=== PATIENT | female | born 1940 | race Caucasian/White ===

== ENCOUNTER 2016-09-09 10:10 | Observation (INO) ==
[2016-09-09] MEDS ORDERED: ASPIRIN PO STA (10:42)
[2016-09-09 11:00] LABS: MANUAL DIFF NEEDED? NO
--- NOTE | 2016-09-09 11:00 | Diag Imaging Result Doc PS360 ---
EXAM: CHEST-PORTABLE HISTORY: CP TECHNIQUE: AP erect portable at 1055 COMMENT: Compared to the previous study of 06/09/2015 there has been no significant change in the appearance of the chest. IMPRESSION: Stable chest. Electronically signed by Carloz Castrejon 09/09/2016 10:58 AM
[2016-09-09 11:02] LABS: BASO% 0.1 % (0.0-0.8); EOS# 0.05 X1000 (0.0-0.7); EOS% 0.7 % (0.0-10.0); HEMATOCRIT 40.7 % (37.0-47.0); HEMOGLOBIN 13.4 g/dL (12.0-16.0); LYMPH# 0.75 X1000 (1.2-3.4); LYMPH% 10.5 % (20.5-51.1); MCH 32.6 PG (27-31); MCHC 32.9 g/dL (33-37); MONO# 0.42 X1000 (0.11-0.59); MONO% 5.9 % (1.7-9.3); MPV 9.3 FL (7.4-10.4); NEUT% 82.8 % (42.2-75.2); PLT 196 X1000 (130-400); RBC 4.11 XMIL (4.2-5.4)
[2016-09-09 11:13] LABS: INR 1.13; PTT 27.6 Seconds (22.0-36.0)
[2016-09-09 11:19] LABS: AGAP 12; ALBUMIN 4.6 g/dL (3.5-5.0); ALKALINE PHOSPHATASE 65 U/L (32-104); BUN 13 mg/dL (8-22); CHLORIDE 91 mmol/L (98-107); CK PROFILE 157 U/L (24-173); COSMO 273; GOT 20 U/L (10-30); GPT 11 U/L (10-36); MAGNESIUM 1.6 mg/dL (1.5-2.7); POTASSIUM 3.9 mmol/L (3.5-5.1); SODIUM 136 mmol/L (136-145); TCO2 33 mmol/L (25-35); TOTAL BILIRUBIN 0.67 mg/dL (0.20-1.00); TOTAL PROTEIN 7.3 g/dL (6.3-8.3)
--- NOTE | 2016-09-09 11:47 | EKG Report ---
Test Performed on : 09/09/2016 10:10:26 AM Test Reason : ED. Not ordered in [place]. Blood Pressure : / mmHG Vent. Rate : 072 BPM Atrial Rate : 061 BPM P-R Int : 000 ms QRS Dur : 078 ms QT Int : 410 ms P-R-T Axes : 000 056 005 degrees QTc Int : 448 ms Atrial fibrillation. Abnormal ECG When compared with ECG of 09-JUN-2015 21:25, Vent. rate has decreased BY 42 BPM Unconfirmed Result
--- NOTE | 2016-09-09 12:09 | PROVIDER DOCUMENTATION ---
This chart was entered by Boaz Mitchell Scribe, acting as scribe for Joann French MD. HPI-Chest Pain - General Chief Complaint: Chest Pain Stated Complaint: CP Time Seen by Provider: 09/09/16 10:35 Source: patient Allergies/Adverse Reactions: Patient Allergies Allergy/AdvReac Type Severity Reaction Status Date / Time ampicillin Allergy Mild Unknown Verified 09/09/16 10:42 Penicillins Allergy Mild RASH Verified 09/09/16 10:42 acetaminophen [From Percocet] Allergy Unknown Verified 09/09/16 10:42 oxycodone HCl * Allergy Unknown Verified 09/09/16 10:42 [From Percocet] Home Medications: Home Medication List Medication Instructions Recorded Confirmed Last Taken Type Alprazolam [Xanax] 1 mg PO QHS PRN 08/27/14 09/09/16 04/22/15 History Apixaban [Eliquis] 2.5 mg PO BID 08/27/14 09/09/16 09/09/16 08:00 History Biotin 500 mcg PO DAILY 08/27/14 09/09/16 09/09/16 08:00 History Bisacodyl [Dulcolax] 5 mg PO DAILY 08/27/14 09/09/16 09/09/16 08:00 History Calcium Citrate/Vitamin D3 [[place] 1 tab PO DAILY 08/27/14 09/09/16 09/09/16 08: 00 History Calcium + D Tablet] Carvedilol [Coreg] 12.5 mg PO BID 08/27/14 09/09/16 09/09/16 08:00 History Escitalopram Oxalate [Lexapro] 10 mg PO BID 08/27/14 09/09/16 09/09/16 08:00 History Fluticasone 50 Mcg Nasal [place] 1 spray INH DAILY 08/27/14 09/09/16 04/22/15 History [Flonase] Folic Acid 0.8 mg PO DAILY 08/27/14 09/09/16 09/09/16 08:00 History Folic Acid/Multivit-Min/[place] 1 tab PO DAILY 08/27/14 09/09/16 09/09/16 08:00 History [Centrum Silver Chewable Tablet] Furosemide [Lasix] 20 mg PO DIRECTED 08/27/14 09/09/16 09/09/16 08:00 History Gabapentin 400 mg PO TID 08/27/14 09/09/16 09/09/16 08:00 History Hydrocodone/Acetaminophen [[place] 1 tab PO Q4HR PRN 08/27/14 09/09/16 04/22/15 History 10-325 Tablet] Lisinopril 10 mg PO DAILY 08/27/14 09/09/16 09/09/16 08:00 History PRAVAstatin [Pravachol] 40 mg PO QHS 08/27/14 09/09/16 09/09/16 08:00 History Pantoprazole [Protonix] 40 mg PO DAILY@0700 08/27/14 09/09/16 09/09/16 08:00 History Fluticasone Propionate 44 INH 1 puff INH DAILY 08/28/14 09/09/16 04/22/15 History [Flovent 44 Microgm Hfa] Clonidine HCl 0.1 mg PO TID PRN #30 tablet 06/09/15 09/09/16 09/09/16 08:00 Rx Cetirizine HCl [Zyrtec] 10 mg PO DAILY 09/09/16 09/09/16 09/09/16 08:00 History Clopidogrel Bisulfate [Plavix] 75 mg PO DAILY 09/09/16 09/09/16 09/09/16 08:00 History Diltiazem HCl [Cartia Xt] 1 tab PO DAILY 09/09/16 09/09/16 09/09/16 08:00 History Ferrous Sulfate 325 mg PO DAILY 09/09/16 09/09/16 09/09/16 08:00 History Levalbuterol Inhaler [Xopenex Hfa] 1 puff PO PRN PRN 09/09/16 09/09/16 Unknown History Methocarbamol [Robaxin-750] 750 mg PO PRN PRN 09/09/16 09/09/16 Unknown History Nitroglycerin 0.4 mg SL PRN PRN 09/09/16 09/09/16 09/09/16 08:00 History Potassium Chloride [Klor-Con 10] 2 tab PO BID 09/09/16 09/09/16 09/09/16 08:00 History - History of Present Illness-CP Nature of Presenting Problem: 75 yo F presents to the ER with complaint of CP since 9 AM. The pain radiated to her L arm. Pt took nitro this morning and experienced relief. PT felt nauseas , SOB, but did not vomit. Location: reports: substernal Chest Pain Radiation: reports: arms (left) Quality of Pain: reports: pressure Severity in ED: mild Onset/Duration: this morning Timing: gone now Associated Symptoms: reports: nausea, shortness of breath Nitro Today/Relief: provided at home Aspirin Treatment Today: no aspirin today Review of Systems - Adult - REVIEW OF SYSTEMS - ADULT Constitutional: denies: chills, fever Cardiovascular: reports: chest pain. denies: palpitations Gastrointestinal: reports: nausea. denies: abdominal pain, vomiting All Other Systems: Reviewed and Negative Past History - Adult - PAST MEDICAL HISTORY-ADULT Review of Records: reports: Old Records Reviewed, Nursing Assessment Review, Medications Reviewed, Social history reviewed & non-contributory. Major Childhood Illnesses: reports: denies history Cardiovascular: reports: A-Fib, CAD, HTN, hyperlipidemia, GA Respiratory: reports: COPD Gastrointestinal: reports: diverticulosis, GI bleed Obstetrical/Gynecological: reports: denies history Genitourinary: reports: denies history Musculoskeletal: reports: chronic pain, intervertebral disc disease Neurological: reports: denies history Psychiatric: reports: anxiety Endocrine/Immune: reports: denies history Other Conditions: reports: denies history - PRIOR SURGERIES/PROCEDURES Surgical/Procedure History: reports: hysterectomy, other (colectomy) - IMMUNIZATION STATUS Childhood Immunizations: See Nurse Assessment Flu Vaccine: See Nurse Assessment - FAMILY HISTORY Family History: reviewed, not pertinent Physical Exam-General - PHYSICAL EXAM-ADULT Initial Vital Signs Reviewed: Yes - CONSTITUTIONAL General Appearance: appears well, alert, no apparent distress - RESPIRATORY Respiratory: chest non-tender, lungs clear - CARDIOVASCULAR Cardiovascular: normal peripheral pulses, regular rate, rhythm - GASTROINTESTINAL (ABDOMEN) Abdominal Exam: normal bowel sounds, non tender, soft - MUSCULOSKELETAL Extremity: normal range of motion, non-tender, normal gait - SKIN Integumentary: normal color, normal turgor, warm/dry Progress - PLAN OF CARE/RESULTS Progress/Plan/Lab Results: Vital Signs - 8 hr 09/09/16 10:28 09/09/16 11:58 Temperature 98.3 F Pulse Rate 77 66 Respiratory Rate 21 24 Blood Pressure 124/67 144/77 O2 Sat by Pulse Oximetry 95 96 Laboratory Results - last 24 hr 09/09/16 09/09/16 09/09/16 10:25 10:25 10:25 WBC 7.14 RBC 4.11 L Hgb 13.4 Hct 40.7 MCV 99.0 MCH 32.6 H MCHC 32.9 L RDW Std Deviation 12.0 Plt Count 196 MPV 9.3 Immature Gran % (Auto) 0.0 Neut % (Auto) 82.8 H Lymph % (Auto) 10.5 L [place] % (Auto) 5.9 Eos % (Auto) 0.7 Baso % (Auto) 0.1 Immature Gran # (Auto) 0.00 Neut # (Auto) 5.91 Lymph # (Auto) 0.75 L [place] # (Auto) 0.42 Eos # (Auto) 0.05 Baso # (Auto) 0.01 PT INR PTT (Actin FS) Sodium 136 Potassium 3.9 Chloride 91 L Carbon Dioxide 33 Anion Gap 12 BUN 13 Creatinine 0.7 Estimated GFR/1.73 m2 > 60 BUN/Creatinine Ratio 19 Glucose 116 H Calculated Osmolality 273 Calcium 10.0 Magnesium 1.6 Total Bilirubin 0.67 AST 20 ALT 11 Alkaline Phosphatase 65 Creatine Kinase 157 Troponin T Dae-M-Ktykxryevvn Pept 2065 H Total Protein 7.3 Albumin 4.6 Globulin 2.7 Albumin/Globulin Ratio 1.7 09/09/16 09/09/16 10:25 10:25 WBC RBC Hgb Hct MCV MCH MCHC RDW Std Deviation Plt Count MPV Immature Gran % (Auto) Neut % (Auto) Lymph % (Auto) [place] % (Auto) Eos % (Auto) Baso % (Auto) Immature Gran # (Auto) Neut # (Auto) Lymph # (Auto) [place] # (Auto) Eos # (Auto) Baso # (Auto) PT 12.0 H INR 1.13 PTT (Actin FS) 27.6 Sodium Potassium Chloride Carbon Dioxide Anion Gap BUN Creatinine Estimated GFR/1.73 m2 BUN/Creatinine Ratio Glucose Calculated Osmolality Calcium Magnesium Total Bilirubin AST ALT Alkaline Phosphatase Creatine Kinase Troponin T < 0.010 Ang-E-Jdlykxgqmun Pept Total Protein Albumin Globulin Albumin/Globulin Ratio Orders Category Date Time Status Cardiac Monitoring DIRECTED Care 09/09/16 10:42 Active Saline Loc NOW Care 09/09/16 10:42 Active CHEST-PORTABLE [RAD] Stat Exams 09/09/16 10:42 Completed CBC WITH ELECTRONIC DIFF [HEME] Stat Lab 09/09/16 10:25 Completed CK PROFILE [SP CHEM] Stat Lab 09/09/16 10:25 Completed COMPREHENSIVE METABOLIC PANEL [CHEM] Stat Lab 09/09/16 10:25 Completed MAGNESIUM [CHEM] Stat Lab 09/09/16 10:25 Completed PRO B-NATRIURETIC PEPTIDE Stat Lab 09/09/16 10:25 Completed PROTIME WITH INR [COAG] Stat Lab 09/09/16 10:25 Completed PTT [COAG] Stat Lab 09/09/16 10:25 Completed TROPONIN T Stat Lab 09/09/16 10:25 Completed Aspirin Med 09/09/16 10:42 Discontinued 325 mg PO STAT STA EKG [EKG] Stat Ther 09/09/16 10:10 Draft Result Diagrams: 09/09/16 10:25 09/09/16 10:25 - EKG 1 Time of EKG reading by physician:: 10:30 EKG Read and Signed by:: Joann French EKG Interpretation (*Must complete 3 of following elements*): Abnormal Rate: 72 Rhythm: atrial fibrillation [place]: normal QRS: normal OR Interval: normal ST Wave: normal Comments: abnormal EKG - XRAY 1 XRAY Study: Chest Impression: See EMR Report - CONSULTS/PCP/HOSPITALIST Notification #1 *Consult/PCP/Hospitalist*: DR Madrigal Time Discussed: 12:07 Consult Disposition: Admit Departure - Departure Date of Disposition Decision: 09/09/16 Time of Disposition Decision: 12:07 DIAGNOSIS: Unstable angina Chest pain Qualifiers: Chest pain type: unspecified Qualified Code(s): R07.9 - Chest pain, unspecified CHF (congestive heart failure) Qualifiers: Congestive heart failure type: unspecified congestive heart failure type Congestive heart failure chronicity: unspecified congestive heart failure chronicity Qualified Code(s): I50.9 - Heart failure, unspecified Disposition: ADMITTED INPATIENT 09 Certified Medical Emergency: Urgent Condition: Fair - Critical Care Note This patient required my direct & personal management of CC.: No Comments: pt falls into moderate risk category pt do not recall recent stress test first set of labs normal needs to be admitted for further evalaution This chart was documented by the indicated scribe, (Boaz Mitchell Scribe) and accurately reflects the services I performed and decisions made by me, Joann French MD, as attested by the provider's signature.
[2016-09-09] MEDS ORDERED: PNEUMOVAX 23 IM ONE (14:45)
[2016-09-09] MEDS ORDERED: CATAPRES PO PRN (15:49)
[2016-09-09] MEDS ORDERED: ZOFRAN IV PRN (15:51)
[2016-09-09] MEDS ORDERED: DUONEB (A & A) INH PRN (15:51)
[2016-09-09] MEDS ORDERED: TYLENOL PO PRN (15:51)
[2016-09-09] MEDS ORDERED: NEURONTIN PO SCH (17:00)
[2016-09-09] MEDS: NEURONTIN PO SCH (17:43)
[2016-09-09] MEDS: NORCO-10 PO PRN (17:44)
[2016-09-09 18:32] LABS: URINE MICRO REVIEW NEEDED? NO; URINE SOURCE CLEAN CATCH
[2016-09-09 18:35] LABS: BILIRUBIN URINE NEGATIVE (NEGATIVE); BLOOD URINE NEGATIVE (NEGATIVE); COLOR YELLOW; GLUCOSE URINE NEGATIVE (NEGATIVE); LEUKOCYTES URINE SMALL (NEGATIVE); NITRITE URINE NEGATIVE (NEGATIVE); PH URINE 5.5; PROTEIN URINE TRACE mg/dL (NEGATIVE); SP GRAVITY URINE 1.016; TURBIDITY URINE CLEAR (CLEAR); UR EPITHELIAL CELLS <10 /HPF (<10); URINE BACTERIA 4+ /HPF; URINE CULTURE NEEDED? YES; URINE RBC <10 /HPF (<10); UROBILINOGEN URINE NORMAL (NORMAL)
[2016-09-09] MEDS: PRINIVIL PO SCH ×2 (18:49→21:49)
[2016-09-09] MEDS: COREG PO SCH ×2 (18:49→21:49)
[2016-09-09] MEDS: ELIQUIS PO SCH ×2 (18:49→21:49)
[2016-09-09] MEDS: VALIUM PO PRN ×2 (18:53→21:48)
--- NOTE | 2016-09-09 20:44 | HISTORY AND PHYSICAL ---
CHIEF COMPLAINT: Unknown. HISTORY OF PRESENT ILLNESS: This 75-year-old, white female had apparently been struggling with fluctuating blood pressure and not eating or drinking since last week. Despite her daughter's insistence, she refused to come. They called the office this morning and we offered them an appointment. They then stated that the patient was too sick and called 911 for ambulance transport. I cannot concur that this was entirely necessary. The patient reported to the emergency room doctor that she had chest pain this morning. To me she stated that she just had some very light pressure which dissipated quickly. When I asked what was wrong with her for the last week or so, she came up with a plethora of problems and when any of those were questioned, she would change the subject. She has not been sleeping well, not been eating or drinking and she "just could not go". PAST MEDICAL HISTORY: 1. Chronic low back pain, on narcotics. 2. Anxiety and depression. 3. Chronic anticoagulation with Eliquis. 4. Pulmonary hypertension with history of volume overloaded state. 5. Hypertension. 6. Chronic constipation. 7. Folic acid deficiency. 8. B12 deficiency. 9. Gastroesophageal reflux disease. 10. Hyperlipidemia. 11. Atrial fibrillation, chronic. 12. Remote history of acute myocardial infarction with chronic ischemic disease. 13. History of diverticular rupture with colostomy and subsequent reversal. 14. Chronic moderate COPD. 15. Patient is on chronic oxygen at home. SOCIAL HISTORY: The patient is a former smoker. She is for the last several years. She is a nonuser of alcohol. She uses opiates on a daily basis. FAMILY HISTORY: Noncontributory. REVIEW OF SYSTEMS: The patient denies any fever or chills. She states that she does not want to eat because it "does not taste good". She has some mild nausea. She had a little bit of chest pressure today, but no shortness of breath. According to the daughter, her blood pressures been wildly fluctuating and her heart rate has been elevated on a consistent basis. Patient states that she maxwell when she urinates and has frequency as well. She denied any abdominal pain, vomiting or diarrhea. The patient states she has not been sleeping well. Patient has lost 10 pounds in the last 2 weeks or so according to the daughter. PHYSICAL EXAMINATION: GENERAL: Thin, white female in no acute distress. Her speech is somewhat rambling, tangential. Although she puts her thoughts and words together appropriately, I do not think she is as completely oriented as she passes herself off to be. ENT: Sclerae anicteric. Oral mucosa is adequately hydrated. NECK: No JVD or bruits noted. LUNGS: Clear to auscultation bilaterally. CARDIOVASCULAR: Irregular at approximately 80 beats per minute with no particular murmurs. ABDOMEN: Shows bowel sounds are present. She has slight epigastric tenderness , but no palpable mass. EXTREMITIES: Show no peripheral edema. SKIN: She does have skin tenting on her forearms. LABORATORY: White blood cell count 7, hematocrit 40.7. Sodium is 136, potassium 3.9, creatinine 0.7, blood sugars 116. Liver function tests are normal. CK is 157. Initial troponin is negative. ProBNP is slightly elevated at 2065. UA showed significant WBC, sent for culture. ASSESSMENT/PLAN: 1. The patient will be admitted to the hospital and kept on telemetry. We will get serial cardiac enzymes since she did have some chest pressure and a history of coronary disease. 2. The patient's relative anorexia is more or less self-induced. I think she does have some psychological problems revolving around depression and anxiety which have been driving her fluctuations in blood pressure as well as her weight loss and poor appetite. We will try and resolve this with the addition of Remeron at night to help her to sleep and to calm her. We will have p.r.n. medications available should she need it for nervousness. 3. The remainder of the patient's home medications remain as they were previously for control of her atrial fibrillation and other issues. 4. UTI will be treated with Levaquin pending culture results. She is PCN allergic. cc: Berto Madrigal MD [facility]
[2016-09-09] MEDS: LEVAQUIN 500 MG/D5W 500 MG/100 ML IVPB IV SCH (21:00)
[2016-09-09] MEDS ORDERED: XANAX PO PRN (21:00)
[2016-09-09] MEDS: REMERON PO SCH (21:48)
[2016-09-09] MEDS: LEXAPRO PO SCH (21:48)
[2016-09-10] MEDS: PROTONIX PO SCH (06:49)
[2016-09-10] MEDS ORDERED: PRINIVIL PO SCH (09:00)
[2016-09-10] MEDS: PLAVIX PO SCH (09:06)
[2016-09-10] MEDS: CARDIZEM CD PO SCH (09:06)
[2016-09-10] MEDS: COREG PO SCH ×2 (09:06→21:20)
[2016-09-10] MEDS: FERROUS SULFATE PO SCH (09:06)
[2016-09-10] MEDS: ELIQUIS PO SCH ×2 (09:06→21:20)
[2016-09-10] MEDS: PRINIVIL PO SCH ×2 (09:06→21:20)
[2016-09-10] MEDS: LEXAPRO PO SCH ×2 (09:06→21:19)
[2016-09-10] MEDS: NEURONTIN PO SCH ×3 (09:06→17:17)
[2016-09-10] MEDS: NORCO-10 PO PRN ×3 (10:25→23:26)
--- NOTE | 2016-09-10 12:33 | PROGRESS NOTE ---
DATE: 09/10/2016 SUBJECTIVE: The patient was awake when I came in the room but had not yet eaten breakfast. She states today that she ate poorly last night, although she slept rather well. The patient's daughter was present but asleep in the chair. Patient admitted to me that the day of admission she had woken up having dreamt about her and was quite upset. She has been contemplating his demise of late and as I thought yesterday, there was a psychological underpinning to be nature for vague complaints leading to hospitalization. I explained to her that she did have urinary tract infection, that if she did not product picker her appetite she would suffer some type of a poor outcome. She expressed understanding. OBJECTIVE: Vital signs: Temperature 98.1, pulse 87, blood pressure 129/75. General: Patient is awake, alert, oriented, and conversive. She seems a little more like herself today. She is a little calmer in her responses and measured in the way that she talks. Lungs: Clear. Cardiovascular: Irregularly irregular. ASSESSMENT AND PLAN: 1. The patient will continue on Levaquin until we get urine culture results. 2. The patient's cardiac enzymes are negative x3. We will not pursue this avenue of investigation any further. 3. We will continue the patient's Remeron at night. I have also add the lowest possible dose of Klonopin to get her good sleep and to hopefully have some residual antianxiety affect for the following day. 4. We will continue to monitor the patient's blood pressure. 5. The patient is strongly encouraged to eat and drink. We will monitor her total input and output. cc: Berto Madrigal MD
[2016-09-10] MEDS: VALIUM PO PRN (16:53)
[2016-09-10] MEDS ORDERED: KLONOPIN PO SCH (21:00)
[2016-09-10] MEDS ORDERED: PRAVACHOL PO SCH (21:00)
[2016-09-10] MEDS: REMERON PO SCH (21:19)
[2016-09-10] MEDS: LEVAQUIN 500 MG/D5W 500 MG/100 ML IVPB IV SCH (21:20)
[2016-09-11] MEDS: PROTONIX PO SCH (06:30)
[2016-09-11] MEDS: NORCO-10 PO PRN (06:33)
[2016-09-11 07:23] VITALS: BP 128/75
[2016-09-11] MEDS: PRINIVIL PO SCH (08:45)
[2016-09-11] MEDS: COREG PO SCH (08:45)
[2016-09-11] MEDS: FERROUS SULFATE PO SCH (08:45)
[2016-09-11] MEDS: LEXAPRO PO SCH (08:45)
[2016-09-11] MEDS: PLAVIX PO SCH (08:45)
[2016-09-11] MEDS: NEURONTIN PO SCH (08:46)
[2016-09-11] MEDS: CARDIZEM CD PO SCH (08:46)
[2016-09-11] MEDS: ELIQUIS PO SCH (08:46)
--- NOTE | 2016-09-11 09:54 | DISCHARGE SUMMARY ---
ADMISSION DATE: 09/09/2016 DISCHARGE DATE: DISCHARGE DIAGNOSES: 1. Shortness of breath. 2. Anorexia. 3. Urinary tract infection. 4. Chronic atrial fibrillation. 5. Chest pain. HOSPITAL COURSE: This 75-year-old white female was admitted to the hospital with weakness, to some degree confusion, and urinary tract infection. In the emergency room she complained of some chest pressure, which was also of concern given her cardiac history. The patient was admitted to the hospital and was noted on my examination of her that her mental status was not at its baseline. She seemed very frazzled and disorganized and was not making a whole much sense. As we discuss things further, it was clear that there was at least some psychological element to her recent down turn and loss of appetite, loss of sleep, and other situational pressures which are affecting her. The patient was ruled out with serial cardiac isoenzymes. She was discovered to have a urinary tract infection and started on Levaquin. Cultures were pending at the time of discharge. I have added a tiny dose of Klonopin with some Remeron to her nighttime medicine and she slept very soundly and was much more organized the following day. On the day of discharge, she was back to her baseline level of interaction and was eating and drinking much, much better. I discussed the findings and plan with the patient and her daughter and they were in agreement with discharge. New medications will be written for them at time the time of discharge. Old medications will be refilled through my office and she will have followup as scheduled previously. cc: Berto Madrigal MD
== END 2016-09-11 10:20 | disposition home or self-care (01) ==
LOC: ED 10:10 → 4N 10:10
PROVIDERS: ADMIT Internal Medicine; ATTEND Internal Medicine

== ENCOUNTER 2018-08-17 17:22 | Inpatient (IN) ==
[2018-08-17] MEDS ORDERED: SOLU-MEDROL IV ONE (18:23)
--- NOTE | 2018-08-17 18:43 | Diag Imaging Result Doc PS360 ---
EXAM: CHEST-2 VIEWS INDICATION: SOB TECHNIQUE: 2 views COMPARISON: 09/09/2016 FINDINGS: There is suggestion of mild subsegmental atelectasis at the lung bases. The lungs are grossly clear, otherwise. There is no discrete pleural fluid collection or pneumothorax. The cardiac silhouette is mildly prominent but stable. IMPRESSION: Mildly prominent heart that is stable and subsegmental atelectasis at the lung bases. Electronically signed by Misbah Brannon 08/17/2018 6:40 PM
--- NOTE | 2018-08-17 18:44 | PROVIDER DOCUMENTATION ---
This chart was entered by Anuja Brannon Scribe, acting as scribe for Idris Ramesh MD. HPI-Respiratory General - General Chief Complaint: Shortness of Breath Stated Complaint: SOB Time Seen by Provider: 08/17/18 17:53 Source: patient Allergies/Adverse Reactions: Patient Allergies Allergy/AdvReac Type Severity Reaction Status Date / Time ampicillin Allergy Mild Unknown Verified 09/09/16 10:42 Penicillins Allergy Mild RASH Verified 09/09/16 10:42 oxycodone HCl * Allergy Unknown Verified 09/09/16 10:42 [From Percocet] Home Medications: Home Medication List Medication Instructions Recorded Confirmed Last Taken Type Apixaban [Eliquis] 2.5 mg PO BID 08/27/14 09/09/16 09/09/16 07:00 History Biotin 500 mcg PO 1200 08/27/14 09/09/16 3 Weeks Ago History ~08/19/16 Bisacodyl [Dulcolax] 5 mg PO QHS 08/27/14 09/09/16 09/08/16 17:00 History Calcium Citrate/Vitamin D3 [Iva 1 tab PO DAILY 08/27/14 09/09/16 09/09/16 07: 00 History Calcium + D Tablet] Escitalopram Oxalate [Lexapro] 10 mg PO DAILY 08/27/14 09/09/16 09/09/16 07:00 History Fluticasone 50 Mcg Nasal [place] 1 spray YUNG BID 08/27/14 09/09/16 3 Days Ago History [Flonase] ~09/06/16 Folic Acid 0.8 mg PO QHS 08/27/14 09/09/16 09/08/16 17:00 History Furosemide [Lasix] 20 mg PO DIRECTED 08/27/14 09/09/16 09/09/16 07:00 History Hydrocodone/Acetaminophen [[place] 1 tab PO Q4HR PRN 08/27/14 09/09/16 09/09/16 14:00 History 10-325 Tablet] Lisinopril 10 mg PO BID 08/27/14 09/09/16 09/09/16 07:00 History PRAVAstatin [Pravachol] 40 mg PO QHS 08/27/14 09/09/16 09/08/16 17:00 History Pantoprazole [Protonix] 40 mg PO DAILY@0700 08/27/14 09/09/16 09/09/16 07:00 History Fluticasone Propionate 44 INH 1 puff INH Q4-6H PRN PRN 08/28/14 09/09/16 2 Days Ago History [Flovent 44 Microgm Hfa] ~09/07/16 Clonidine HCl 0.1 mg PO TID PRN #30 tablet 06/09/15 09/09/16 09/09/16 08:30 Rx Clopidogrel Bisulfate [Plavix] 75 mg PO DAILY 09/09/16 09/09/16 09/09/16 07:00 History Cyanocobalamin (Vitamin B-12) 5,000 mcg PO DAILY 09/09/16 09/09/16 09/09/16 07:00 History [Vitamin B-12] Diltiazem HCl [Cartia Xt] 1 tab PO QHS 09/09/16 09/09/16 09/08/16 17:00 History Docusate Sodium [Stool Softener] 100 mg PO BID 09/09/16 09/09/16 09/09/16 07:00 History Ferrous Sulfate 325 mg PO QHS 09/09/16 09/09/16 09/08/16 17:00 History Levalbuterol Inhaler [Xopenex Hfa] 2 puff PO Q4-6H PRN PRN 09/09/16 09/09/16 Unknown History Methocarbamol [Robaxin-750] 750 mg PO Q8HR PRN 09/09/16 09/09/16 Unknown History Multivit-Min/Iron/Folic/Lutein 1 each PO QHS 09/09/16 09/09/16 09/08/16 17:00 History [Centrum Silver Women Tablet] Nitroglycerin 0.4 mg SL PRN PRN 09/09/16 09/09/16 09/09/16 09:00 History Potassium Chloride [Klor-Con 10] 20 mg PO 1200 09/09/16 09/09/16 3 Weeks Ago History ~08/19/16 Vitamin E 1,000 units PO DAILY 09/09/16 09/09/16 09/09/16 07:00 History Carvedilol [Coreg] 12.5 mg PO BID tablet 09/11/16 Unknown Rx Clonazepam [Klonopin] 0.25 mg PO QHS #30 tablet 09/11/16 Unknown Rx Gabapentin [Neurontin] 100 mg PO TID #90 capsule 09/11/16 Unknown Rx Mirtazapine [Remeron] 7.5 mg PO QHS #30 tablet 09/11/16 Unknown Rx - History of Present Illness-Resp Nature of Presenting Problem: 77 yof presents to er w/cc sob, dyspnea on exertion, chest tightness and high bp started 1 wk ago but becoming worse sat. pt on 3 L o2 at home. o2 in place at er. pt is a former smoker, quit few yrs ago. pt has hx of cardiac stents and copd. pt denies fever, cough and n/v. Review of Systems - Adult - REVIEW OF SYSTEMS - ADULT Constitutional: reports: no symptoms reported. denies: chills, fever, fatique Eyes: reports: no symptoms reported Ears, Nose, Mouth & Throat: reports: no symptoms reported. denies: ear pain, sinus problem, throat pain Cardiovascular: reports: see HPI, chest pain (tightness). denies: palpitations, poor circulation, syncope Respiratory: reports: see HPI, dyspnea on exertion, shortness of breath. denies: cough, excessive sputum production, hemoptysis Gastrointestinal: reports: no symptoms reported. denies: abdominal pain, nausea, vomiting Genitourinary: reports: no symptoms reported Musculoskeletal: reports: no symptoms reported Integumentary: reports: no symptoms reported Neurological: reports: no symptoms reported Psychiatric: reports: no symptoms reported Endocrine: reports: no symptoms reported Hematologic/Lymphatic: reports: no symptoms reported Allergic/Immunologic: reports: no symptoms reported All Other Systems: Reviewed and Negative Past History - Adult - PAST MEDICAL HISTORY-ADULT Review of Records: reports: Old Records Reviewed, Nursing Assessment Review, Medications Reviewed, Social history reviewed & non-contributory. Major Childhood Illnesses: reports: denies history Cardiovascular: reports: A-Fib, CAD, HTN, hyperlipidemia, [place] Respiratory: reports: COPD Gastrointestinal: reports: diverticulosis, GI bleed Obstetrical/Gynecological: reports: denies history Genitourinary: reports: denies history Musculoskeletal: reports: chronic pain, intervertebral disc disease Neurological: reports: denies history Psychiatric: reports: anxiety Endocrine/Immune: reports: denies history Other Conditions: reports: denies history - PRIOR SURGERIES/PROCEDURES Surgical/Procedure History: reports: hysterectomy, other (colectomy) - IMMUNIZATION STATUS Childhood Immunizations: See Nurse Assessment Flu Vaccine: See Nurse Assessment - FAMILY HISTORY Family History: reviewed, not pertinent - SOCIAL HISTORY Smoking: cigarettes, other (former) Substance Use: none/never Physical Exam-General - PHYSICAL EXAM-ADULT Initial Vital Signs Reviewed: Yes - CONSTITUTIONAL General Appearance: appears well, alert, no apparent distress - EYES Eyes: PERRL/EOMI, pink conjunctivae - HEAD, EARS, NOSE, MOUTH & THROAT HENMT: normocephalic/atraumatic, moist mucous membranes, normal ENT inspection - NECK Neck: non-tender, full range of motion, supple, normal inspection - RESPIRATORY Respiratory: chest non-tender, no pleuratic chest pain, no respiratory distress, no accessory muscle use, decreased breath sounds (mild diminshed), rales (bilat bases), wheezing (bilat bases). negative: lungs clear, normal breath sounds, respiratory distress, dull on percussion, prolonged expiration - CARDIOVASCULAR Cardiovascular: normal peripheral pulses, no edema, no gallop, no JVD, no murmur , tachycardia. negative: regular rate, rhythm, JVD, bradycardia - GASTROINTESTINAL (ABDOMEN) Abdominal Exam: normal bowel sounds, non tender, soft - LYMPHATIC Lymphatic: no adenopathy - MUSCULOSKELETAL Back Exam: normal inspection, no CVA tenderness, no vertebral tenderness Extremity: normal range of motion, non-tender, normal inspection Peripheral Pulses: radial (R): 2+, radial (L): 2+ - SKIN Integumentary: normal color, normal turgor, warm/dry - NEUROLOGIC Neurologic: grossly normal, no motor/sensory deficits - PSYCHIATRIC Psych/Mental Status: normal mood/affect, normal thought content, normal thought process, oriented x 3 Progress - PLAN OF CARE/RESULTS Progress/Plan/Lab Results: Vital Signs - 8 hr 08/17/18 17:45 Temperature 98.0 F Pulse Rate 101 H Respiratory Rate 18 Blood Pressure 155/89 O2 Sat by Pulse Oximetry 95 Orders Category Date Time Status IV Insertion ORDERED Care 08/17/18 18:23 Active CHEST-2 VIEWS [RAD] Stat Exams 08/17/18 18:15 Completed BLOOD CULTURE [BLDCUL] Stat Lab 08/17/18 18:22 Ordered CBC WITH ELECTRONIC DIFF [HEME] Stat Lab 08/17/18 18:21 Uncollected CMP [COMPREHENSIVE METABOLIC PANEL] [CHEM] Stat Lab 08/17/18 18:21 Uncollected LACTATE, PLASMA [CHEM] Stat Lab 08/17/18 18:22 Uncollected Methylprednisolone Sod Succ [Solu-Medrol] Med 08/17/18 18:23 Discontinued 125 mg IV NOW ONE Departure - Departure Referrals and Follow-Ups: Berto Madrigal MD [Primary Care Provider] - Attestation - Physician/ COLLETTE Attestation Patient care was provided by Advanced Practice Provider:: No The physician spent face to face time with patient:: Yes Advanced Practice Provider documentation review:: Supervising physician onsite and consulted in the evaluation and care of this patient. The physician did have a face to face encounter with the patient. This chart was documented by the indicated scribe, (Anuja Brannon, Gamal) and accurately reflects the services I performed and decisions made by me, Idris Ramesh MD, as attested by the provider's signature.
[2018-08-17 18:56] LABS: BASO# 0.01 X1000 (0.0-0.2); BASO% 0.2 % (0.0-0.8); EOS# 0.08 X1000 (0.0-0.7); EOS% 1.4 % (0.0-10.0); HEMATOCRIT 36.8 % (37.0-47.0); HEMOGLOBIN 11.6 g/dL (12.0-16.0); LYMPH# 0.85 X1000 (1.2-3.4); LYMPH% 14.7 % (20.5-51.1); MCH 31.1 PG (27-31); MCHC 31.5 g/dL (33-37); MCV 98.7 FL (81-99); MONO# 0.54 X1000 (0.11-0.59); MONO% 9.4 % (1.7-9.3); MPV 9.3 FL (7.4-10.4); NEUT# 4.29 X1000 (1.4-6.5); NEUT% 74.3 % (42.2-75.2); PLT 172 X1000 (130-400); RBC 3.73 XMIL (4.2-5.4); RDW 12.6 % (11.5-14.5); WBC 5.77 X1000 (4.8-10.8)
[2018-08-17 19:16] LABS: AGAP 10; ALB/GLOB RATIO 1.5; ALBUMIN 4.3 g/dL (3.5-5.0); ALKALINE PHOSPHATASE 85 U/L (32-104); BUN 12 mg/dL (8-22); CALCIUM 9.2 mg/dL (8.8-10.2); CHLORIDE 95 mmol/L (98-107); COSMO 276; CREATININE 0.7 mg/dL (0.5-0.9); ESTIMATED GFR > 60; GLUCOSE 116 mg/dL (70-104); GOT 14 U/L (10-30); GPT 12 U/L (10-36); POTASSIUM 4.4 mmol/L (3.5-5.1); SODIUM 138 mmol/L (136-145); TCO2 33 mmol/L (25-35); TOTAL BILIRUBIN 0.44 mg/dL (0.20-1.00); TOTAL PROTEIN 7.2 g/dL (6.3-8.3)
[2018-08-17] MEDS ORDERED: CATAPRES PO ONE (20:03)
[2018-08-17] MEDS ORDERED: LASIX IV ONE (20:41)
[2018-08-17] MEDS ORDERED: NITROGLYCERIN TOP ONE (22:03)
--- NOTE | 2018-08-17 22:24 | HISTORY AND PHYSICAL ---
ADDENDUM TO HISTORY AND PHYSICAL: PRIMARY CARE PHYSICIAN: Berto Madrigal MD. HISTORY: The patient comes in to our facility initially complaining of 1-day history of urinary frequency and burning which responded after she took some azo tablets. She denies any fever or chills, however. A few hours later, the patient started complaining of some chest tightness with some shortness of breath and got a friend to check her blood pressure. It was greater than 200. This scared her and she decided to come to the hospital to be examined. LAB WORK: Here shows troponin is negative. ProBNP is 2300. Chest film just showed borderline cardiomegaly with possible mild increased vascular markings. EXAM: Blood pressure is now 174/86. Temperature 98, respirations 16, temperature is 97, she is 97 percent on 4 L. On exam, she was pale. Had bibasilar crepitations and rhythm was irregular. ASSESSMENT: Patient may have hypertensive heart disease, secondary to poorly controlled hypertension. Informed that she was even taking her Plavix and this suggested to me that she is not compliant to her medication. Home medication not reconciled. Will recommend put on nitroglycerin paste to bring her blood pressure down. Address her chest discomfort and tightness. We will consult Cardiology to see patient. Once her home medications have been reconciled, will put on the appropriate antihypertensives. Dr. Madrigal will see patient in the morning. cc: Kelly Barrientos MD
[2018-08-17 22:27] LABS: INR 1.09
[2018-08-17 22:28] LABS: PTT 28.8 Seconds (22.3-41.8)
[2018-08-17] MEDS ORDERED: KLONOPIN PO PRN (22:42)
[2018-08-17 23:25] LABS: URINE SOURCE CLEAN CATCH
[2018-08-17] MEDS ORDERED: BLISTEX MEDICATED BERRY LIP BALM TOP PRN (23:27)
[2018-08-17 23:30] LABS: BILIRUBIN URINE NEGATIVE (NEGATIVE); BLOOD URINE NEGATIVE (NEGATIVE); COLOR YELLOW; GLUCOSE URINE NEGATIVE (NEGATIVE); KETONE URINE NEGATIVE (NEGATIVE); LEUKOCYTES URINE NEGATIVE (NEGATIVE); NITRITE URINE NEGATIVE (NEGATIVE); PH URINE 6.5; PROTEIN URINE NEGATIVE (NEGATIVE); TURBIDITY URINE CLEAR (CLEAR); UROBILINOGEN URINE NORMAL (NORMAL)
[2018-08-17 23:31] LABS: UR EPITHELIAL CELLS <10 /HPF (<10); URINE BACTERIA NEGATIVE /HPF; URINE RBC <10 /HPF (<10); URINE WBC <10 /HPF (<10)
[2018-08-18] MEDS ORDERED: ZOFRAN IV PRN (00:05)
[2018-08-18] MEDS: COREG PO SCH ×3 (00:49→20:11)
[2018-08-18] MEDS: ELIQUIS PO SCH ×3 (00:49→20:11)
[2018-08-18] MEDS: CARDIZEM CD PO SCH ×2 (00:49→20:11)
[2018-08-18] MEDS: FLOMAX PO SCH ×2 (00:50→20:12)
[2018-08-18] MEDS: COLACE PO SCH ×3 (00:51→20:16)
[2018-08-18 03:35] LABS: URINE SOURCE CLEAN CATCH
[2018-08-18 03:42] LABS: BILIRUBIN URINE NEGATIVE (NEGATIVE); BLOOD URINE NEGATIVE (NEGATIVE); COLOR YELLOW; GLUCOSE URINE NEGATIVE (NEGATIVE); KETONE URINE NEGATIVE (NEGATIVE); LEUKOCYTES URINE NEGATIVE (NEGATIVE); NITRITE URINE NEGATIVE (NEGATIVE); PH URINE 6.5; PROTEIN URINE NEGATIVE (NEGATIVE); TURBIDITY URINE CLEAR (CLEAR); UR EPITHELIAL CELLS <10 /HPF (<10); URINE BACTERIA NEGATIVE /HPF; URINE RBC <10 /HPF (<10); URINE WBC <10 /HPF (<10); UROBILINOGEN URINE NORMAL (NORMAL)
[2018-08-18 04:04] LABS: BASO% 0.2 % (0.0-0.8); HEMATOCRIT 39.5 % (37.0-47.0); HEMOGLOBIN 12.6 g/dL (12.0-16.0); LYMPH# 0.51 X1000 (1.2-3.4); LYMPH% 7.9 % (20.5-51.1); MCHC 31.9 g/dL (33-37); MCV 97.1 FL (81-99); MONO% 1.1 % (1.7-9.3); MPV 9.5 FL (7.4-10.4); NEUT# 5.84 X1000 (1.4-6.5); NEUT% 90.8 % (42.2-75.2); PLT 192 X1000 (130-400); RBC 4.07 XMIL (4.2-5.4); RDW 12.7 % (11.5-14.5); WBC 6.43 X1000 (4.8-10.8)
[2018-08-18 04:05] LABS: BASO# 0.01 X1000 (0.0-0.2); MONO# 0.07 X1000 (0.11-0.59)
[2018-08-18 04:24] LABS: CHLORIDE 91 mmol/L (98-107); CREATININE 0.8 mg/dL (0.5-0.9); ESTIMATED GFR > 60; IRON SATURATION 9 %; POTASSIUM 3.7 mmol/L (3.5-5.1); SODIUM 138 mmol/L (136-145); TIBC 299 ug/dL; TOTAL IRON 28 ug/dL (49-151); UNBOUND IRON 271 ug/dL (112-346)
[2018-08-18 04:25] LABS: BUN 17 mg/dL (8-22); CALCIUM 9.6 mg/dL (8.8-10.2); MAGNESIUM 1.8 mg/dL (1.5-2.7); TCO2 31 mmol/L (25-35)
[2018-08-18 04:32] LABS: FERRITIN 178 ng/mL (13-150)
[2018-08-18 04:33] LABS: GLUCOSE 164 mg/dL (70-104)
[2018-08-18 04:41] LABS: LYMPHS 6 % (21-51); MONO 1 % (1-9); SEGS 93 % (42-75)
[2018-08-18 04:45] LABS: AGAP 16
[2018-08-18 04:47] LABS: COSMO 281
[2018-08-18] MEDS: PRILOSEC PO SCH (06:15)
--- NOTE | 2018-08-18 07:59 | EKG Report ---
Test Performed on : 08/18/2018 06:51:56 AM Test Reason : chest pain,dyspnea,poss. new onset CHF Blood Pressure : / mmHG Vent. Rate : 100 BPM Atrial Rate : 300 BPM P-R Int : 000 ms QRS Dur : 088 ms QT Int : 386 ms P-R-T Axes : 000 061 -01 degrees QTc Int : 497 ms Atrial fibrillation. Abnormal QRS-T angle, consider primary T wave abnormality Prolonged QT Abnormal ECG When compared with ECG of 17-AUG-2018 19:53, (Unconfirmed) No significant change was found Confirmed by Phil MORRIS, Isra Theodore ([id number]) on 08/18/2018 9:19:36 AM
--- NOTE | 2018-08-18 08:17 | EKG Report ---
Test Performed on : 08/17/2018 7:53:50 PM Test Reason : sob Blood Pressure : / mmHG Vent. Rate : 105 BPM Atrial Rate : 258 BPM P-R Int : 000 ms QRS Dur : 084 ms QT Int : 342 ms P-R-T Axes : 000 059 022 degrees QTc Int : 452 ms Atrial fibrillation. with rapid ventricular response. Abnormal ECG When compared with ECG of 09-SEP-2016 10:10, No significant change was found Unconfirmed Result
[2018-08-18] MEDS: LEXAPRO PO SCH (09:59)
[2018-08-18] MEDS: FOLIC ACID PO SCH (09:59)
[2018-08-18] MEDS: PRINIVIL PO SCH ×2 (09:59→20:11)
[2018-08-18] MEDS: LASIX IV SCH (10:00)
[2018-08-18] MEDS: FLONASE NAS SCH ×2 (10:05→20:16)
[2018-08-18 11:04] LABS: CHOLESTEROL 182 mg/dL (0-200); HDL 68 mg/dL (45-65); LDL 101 mg/dL; TRIGLYCERIDES 64 mg/dL (35-135); VLDL 13 mg/dL
--- NOTE | 2018-08-18 13:51 | ECHO REPORT ---
ORDER DATE: 08/18/2018 INTERPRETING PHYSICIAN: Dr. Sandeep Townsend. ECHOCARDIOGRAPHIC MEASUREMENTS: 1. Interventricular septum 1.1 cm. 2. Left ventricular posterior wall 1.2 cm. 3. Diastolic diameter 3.9 cm. 4. Left atrium 3.9 cm. 5. Aorta 3.4 cm SUMMARY OF THE 2-DIMENSIONAL IMAGIN. Aortic valve leaflets are trileaflet. 2. Pulmonic valve was normal. 3. There is trace pulmonary regurgitation. 4. Mitral valve was normal. 5. Tricuspid valve was normal. 6. There is biatrial enlargement. 7. There is moderate eccentric mitral regurgitation. 8. Peak velocity across the tricuspid valve was 3.3 m/sec. 9. Pulmonary artery systolic pressure of 52 mmHg. 10. Atrial fibrillation was noted. 11. There is mild mitral regurgitation. 12. Peak velocity across the aortic valve less than 2 m/sec. 13. By Doppler studies, there is no aortic stenosis or regurgitation. 14. Normal left ventricular cavity size. 15. Concentric left ventricular hypertrophy. 16. Mild estimated ejection fraction of 65%. 17. Atrial fibrillation noted. 18. There is no pericardial effusion or obvious intracardiac mass or thrombus seen. cc: MD Berto Chavarria MD
[2018-08-18] MEDS: NORCO-10 PO PRN ×2 (14:14→18:20)
--- NOTE | 2018-08-18 15:06 | CARDIOLOGY CONSULTATION ---
DATE: 08/18/2018 CHIEF COMPLAINT: Shortness of breath. Uncontrolled hypertension. HISTORY: Ms. Dudley is a 77-year-old female, presented to the emergency room yesterday at about 6:22 p.m. because for the past several days since an emotional outburst that happened on August 08, the patient has been having a significant fluctuation in her blood pressure with systolic numbers getting up to the 215 mmHg and even higher. The patient said that for several days, she had experienced frequent urination complicated with constipation. On the day of admission, she experienced shortness of breath, some wheezing that did not seem to improve after using bronchodilators, and also pressure in the chest. Upon presentation, the ER documented a blood pressure of 155/89, temperature of 98 degrees, and a pulse rate of 101. Initial EKG shows atrial fibrillation without ischemic changes. Subsequent EKG shows the same atrial fibrillation without ischemic changes. They have recorded troponin levels a total of 3 times. First at 6:45 p.m., then 3:41 a.m. and then 10:20 this morning. All of them are negative. ProBNP was 2393. A chest x-ray done in the ER shows mildly prominent heart, subsegmental atelectasis at the lung bases. The patient was placed on oxygen, her usual medications and her blood pressure this morning is better and she is feeling more comfortable. PAST MEDICAL HISTORY: Extensive. She has permanent atrial fibrillation. She has had coronary heart disease with a previous stent to right coronary artery followed by an episode of takotsubo cardiomyopathy. Subsequent re-stenting of the right coronary artery after the cardiomyopathy resolved. She has advanced COPD and she is on home oxygen about 3 L a minute. She has hypertension, hyperlipidemia, history of a gastric ulcer with GI bleeding, obstructive sleep apnea, and history of bladder cancer. PAST SURGICAL HISTORY: She has had previous hysterectomy, back surgery in 2015, bladder cancer and colon surgery. SOCIAL HISTORY: She is a for the past 4 years. She has 2 grownup children. She used to smoke but has not done that in 18 years. Lives with a daughter. REVIEW OF SYSTEMS: Beyond what I have said is noncontributory. HOME MEDICATIONS: 1. Eliquis 2.5 twice a day. 2. Carvedilol 12.5 twice a day. 3. Klonopin 0.25 at bedtime. 4. Clonidine as directed. 5. Diltiazem 240 at bedtime. 6. Ferrous sulfate 325 daily. 7. Lexapro 20 daily. 8. She also takes lisinopril 10 twice a day. 9. Xopenex. 10. Pravastatin 40 at bedtime. 11. Potassium chloride 20 daily. 12. Protonix 40 daily. 13. Flomax 0.4 mg daily. 14. Folic acid 1 mg daily. 15. Lasix 20 mg daily. REVIEW OF SYSTEMS: Only significantly positive for the fact that she eats quite a bit of salty foods and she is not very compliant with her medications. Lately, she had dropped taking Plavix. Her diet is not adequate. too much salt intake. PHYSICAL EXAMINATION: Vital signs: Blood pressure is 118/76, pulse 69 to 115, currently is about 69. Temperature 98.1 degrees, respirations 20. General: Elderly. She appears to be older than stated age, frail looking. HEENT: Unremarkable. Chest: Diminished breath sounds, especially in the left lung. Heart: Sounds are irregularly irregular. Abdomen: Soft, nontender. Extremities: Showed decreased pulses. No peripheral edema. Neuro: Nonfocal. Moves 4 extremities. Skin: No significant lesions. LABORATORY DATA: Blood work: Sodium 138, potassium 3.7, BUN 17, creatinine 0.8. IMPRESSION: 1. Patient who presents with chest discomfort/uncontrolled hypertension. 2. History of severe coronary artery disease, previous stent in the right coronary artery requiring repeat stenting 2 or 3 years ago. 3. History of takotsubo cardiomyopathy in the past. 4. Chronic back pain requiring chronic opioid therapy. 5. Long-term anticoagulation with Eliquis. 6. Chronic obstructive pulmonary disease, on home oxygen. 7. Suspect medical noncompliance. 8. Diastolic heart failure, chronic, multifactorial (hypertension,CAD, dietary noncompliance). RECOMMENDATION: At this point in time, we will obtain a nuclear stress test. We will review echocardiogram that I believe has been ordered by the Hospitalist service. We will give further recommendations upon review of those studies. In the meantime, I think we can probably go up on carvedilol 12.5 twice a day to 25 twice a day because she is actually not wheezing at this time. I will also add spironolactone to her regimen and she needs to monitor her potassium levels. We will arrange for a followup with Dr. Townsend at the office. cc: MD Berto Mandel MD [facility] HOSPITALCassidy
[2018-08-18] MEDS: ALDACTONE PO SCH (15:26)
[2018-08-18 19:29] LABS: CK INDEX 1.5 (0.0-2.5); CK-MB 2.74 ng/mL (0.0-5.0)
[2018-08-18] MEDS: DULCOLAX PO SCH (20:11)
[2018-08-18] MEDS: PRAVACHOL PO SCH (20:11)
[2018-08-18] MEDS: FERROUS SULFATE PO SCH (20:12)
--- NOTE | 2018-08-18 21:08 | PROGRESS NOTE ---
DATE: 08/18/2018 SUBJECTIVE: The patient was admitted yesterday with labile hypertensive/hypertensive urgency and associated chest discomfort/shortness of breath. While in the emergency department, laboratory data was drawn revealing normal cardiac enzymes. The patient was placed on telemetry overnight. This morning, upon my arrival, patient stated she was feeling somewhat improved. Her shortness of breath was at baseline. She denied significant chest discomfort. Cardiology was consulted. Stress testing has been arranged. Echocardiogram was performed with pulmonary artery pressures revealing 52 mmHg, left ventricular ejection fraction of 65% and moderate mitral regurgitation. This evening, patient states she is feeling much improved with medication adjustments per Dr. Soliman. She denies fevers, chills, nausea, vomiting, chest pains, or palpitations. OBJECTIVE: Vital Signs: T-max 99.0, heart rate 69 to 115, respirations 16 to 25, blood pressure 106-204/68-129. General: No acute distress. Cardiovascular: Irregularly irregular. No significant murmurs, rubs or gallops. Pulmonary: Prolonged expiratory phase. Adequate air movement. Abdomen: Soft, nontender, nondistended. Positive bowel sounds. Extremities: Moves all extremities well. No significant clubbing, cyanosis or edema. Dermatologic: Evaluation reveals no evidence of rash. LABORATORY DATA: White blood cell count 6.43, hemoglobin 12.6, hematocrit 39.5, platelet count 192,000. Sodium 138, potassium 3.7, chloride 91, bicarb 31, BUN 17, creatinine 0.8, glucose 164, calcium 9.6. Iron 28, TIBC 299. CK 187, troponin less than 0.010. Total cholesterol 182, LDL 101, HDL 68. ASSESSMENT AND PLAN: 1. Chest pain - With a significant cardiac history, full evaluation is warranted. I appreciate Dr. Soliman's consultation. We will pursue stress testing. Further recommendations will be determined depending on her results. 2. Shortness of breath - The patient has underlying COPD requiring oxygen per protocol. With the exacerbation, cardiac etiology will also need to be ruled out. We will evaluate as described above. For now, we will continue supportive care. 3. Hypertensive urgency - This certainly could have precipitated the patient's chest discomfort. With medication adjustments, blood pressure is much better controlled. We will continue her current regimen. 4. Coronary artery disease - The patient has longstanding disease. It appears she has discontinued her clopidogrel. We will discuss this with Cardiology and determine if resuming this is appropriate. We will continue her optimum cardiac medications otherwise. 5. Chronic low back pain - We will continue narcotic intervention as prescribed as an outpatient. 6. Atrial fibrillation - The patient is rate controlled. We will continue to follow. 7. Anticoagulation - We will continue patient on Eliquis therapy. 8. Depression/anxiety - The patient is concerned that this may be playing a role. We will continue Lexapro therapy. 9. Disposition - At this point, patient continues to require fci care in a hospital setting. We will plan discharge home once appropriate. cc: MD Berto Campuzano MD MTDD
--- NOTE | 2018-08-18 23:00 | HISTORY AND PHYSICAL ---
PRIMARY CARE PROVIDERS: Dr. Berto Madrigal. DATE AND TIME: 08/17/2018 at 2115. CHIEF COMPLAINT: Chest pain and shortness of breath. HISTORY OF PRESENT ILLNESS: Ms Dudley is a 77-year-old female with past medical history most notable for coronary artery disease, congestive heart failure, atrial fibrillation on chronic anticoagulation with Eliquis, pulmonary hypertension and COPD oxygen dependent with nasal cannula at 3 L. The patient states that now for approximately a week and a half that she has been having worsening shortness of breath. She states she has been having to prop up at night to sleep. She also reports that she has been having worsening exertional dyspnea. She also did have to bump her home oxygen level up from 3 to 3.5 in the last few days. She also reports her blood pressure has been elevated for the past few days as well. She did earlier in the day begin to have some chest pain. She describes this as a tightness in nature, it was nonradiating in the center of her chest. The patient denied any other associated symptoms except for the shortness of breath. She did report that Dr. Madrigal made a change taking her off her Plavix though other than this she has not had any other cardiac medication changes. She denied any swelling or edema in extremities. She also denied any her clothes fitting tighter though states that she had noticed a few pounds of weight gain approximately 3 to 4 pounds. She also is reporting some urinary symptoms of pain and burning with urination as well as some urinary frequency. Upon evaluation in the ER initial vital signs were temperature 98 degrees, heart rate 101, respirations 18, her blood pressure was not initially that elevated at 155/89 though upon subsequent reading she did begin to have some elevated blood pressures of 204/129 as well as 174/86. She is 97 to 100 percent on nasal cannula at 4 L. The patient reports that she has not taken any of her nighttime blood pressure medications either. Chest x-ray did show a mildly prominent heart that is stable and subsegmental atelectasis in the lung bases. Laboratory results revealed she did have elevated proBNP of 2393 though negative cardiac enzymes at this time. Her urinalysis was also negative for any signs of infection given her reported symptoms. She will be placed inpatient admission for chest pain, dyspnea and possible CHF exacerbation. REVIEW OF SYSTEMS: A 14 point review of systems was conducted with the patient. All were negative except for pertinent positives mentioned above HPI. PAST MEDICAL HISTORY: 1. She does have a history of having coronary artery disease status post stent placement. 2. Congestive heart failure. 3. Chronic low back pain. 4. Anxiety and depression. 5. Chronic anticoagulation with Eliquis. 6. Pulmonary hypertension. 7. Hypertension. 8. Chronic constipation. 9. Folic acid deficiency. 10. B12 deficiency. 11. Gastroesophageal reflux disease. 12. Hyperlipidemia. 13. Atrial fibrillation. 14. COPD on home oxygen. 15. History of diverticular rupture with colostomy and subsequent reversal. PAST SURGICAL HISTORY: History of surgical repair of a diverticular rupture with colostomy placement and subsequent reversal, cardiac stent placement. SOCIAL HISTORY: She is a former smoker. She is a . She does have a daughter who helps take care of her though she does live alone. Does require ambulatory assistance at times. She has no alcohol or illicit drug use. FAMILY HISTORY: The patient's mother age 71 secondary complications diabetes, father age 48 secondary to myocardial infarction . ALLERGIES: Patient allergic penicillin. HOME MEDICATIONS: Eliquis 2.5 mg p.o. b.i.d., Coreg 12.5 p.o. b.i.d., Klonopin 0.25 mg p.o. at bedtime, clonidine 0.1 p.o. as directed p.r.n., Cartia XT 240 mg p.o. at bedtime, docusate sodium 100 mg p.o. b.i.d., Lexapro 20 mg daily, ferrous sulfate 320 mg p.o. at bedtime, fluticasone 50 mcg nasal spray 1 spray bilateral nares b.i.d., folic acid 1 mg p.o. daily, Lasix 20 mg p.o. as directed, [place] 10 mg 1 tablet p.o. q.4-6 hours p.r.n. for pain, Xopenex nebulizer 155 mg inhaled p.r.n., lisinopril 10 mg p.o. b.i.d., Robaxin 750 mg p.o. t.i.d. p.r.n., nitroglycerine 0.4 mg sublingual p.r.n. directed, Protonix 40 mg p.o. daily, potassium chloride 20 mEq p.o. daily, Pravachol 40 mg p.o. at bedtime, Flomax 0.4 mg p.o. at bedtime . DIAGNOSTIC DATA: Laboratory results, white blood cell count 5.77, hemoglobin 11.6, hematocrit 36.8, platelet count 172,000 , PT 15, INR 1.09, PTT 28.8, sodium 138, potassium 4.4, chloride 95, BUN 12, creatinine 0.7, glucose 116, magnesium 1.7, calcium 9.2, liver function tests within normal limits, CK 169, troponin was less than 0.01, ProBNP was 2393. Urinalysis obtained via clean catch was negative for protein, ketones, leukocytes, or bacteria . Chest x-ray shows mildly prominent heart that is stable and subsegmental atelectasis at the lung bases. EKG did show atrial fibrillation a rate 100 QTC 107. PHYSICAL EXAMINATION: VITAL SIGNS: Temperature 97.6 degrees, heart rate 97, respirations 16, blood pressure 174/86, oxygen saturation was 97% nasal cannula 4 L. GENERAL: The patient is a 77-year-old female resting in ER stretcher no acute distress. She was awake, alert, able answer questions appropriately. HEENT: Head is atraumatic, normocephalic. Pupils are equal, round, reactive to light, were 3 mm bilaterally and brisk. Sub conjunctivae pink. Oral mucosa is moist. Oropharynx was clear. NECK: Supple. Trachea midline. There is no JVD noted. CARDIOVASCULAR: Patient has S1-S2 present. No murmurs, gallops, rubs appreciated though she did have a slightly tachycardic rate that was irregularly irregular. PULMONARY: Patient has symmetrical chest expansion bilaterally. Lung sounds are clear to auscultation bilateral upper kennedy and she has some slight crackles in bilateral bases. ABDOMEN: Soft, nontender, nondistended, bowel sounds are present in all 4 quadrants. EXTREMITIES: No cyanosis, clubbing, or edema noted. Pulse, motor, and sensory is intact in all extremities. INTEGUMENTARY: Patient's skin is pink, warm, and dry. NEUROLOGICAL: Patient is alert and oriented x4. She is able move all extremities. There is no focal neurological deficits noted. ASSESSMENT AND PLAN: 1. Chest pain. The patient did complain of some chest tightness it was nonradiating occurred prior to arrival. The patient states that the pain just went away. She does not remember when it actually subsided. She has not had any further episodes. Cardiac enzymes this time have been negative. EKG did not show any acute changes previous though she does have a history of coronary artery disease with stent placement. We have placed a consult with cardiology Dr. Townsend will await his evaluation and further recommendations for management. 2. Possible congestive heart failure exacerbation, patient has been placed on Lasix 20 mg IV daily. Will do daily weights, strict intake and output, will monitor her response to this. We will continue her regularly prescribed cardiac medications as well. Her blood pressure was elevated previously in emergency room though has improved. We will continue to monitor. We have ordered a repeat EKG, cardiac enzymes and echocardiogram in the morning. 3. Chronic atrial fibrillation on anticoagulation with Eliquis. Will continue her Cardizem and her Eliquis, she is in atrial fibrillation at this time the rate is controlled. She will be on continuous cardiac telemetry . 4. History of chronic obstructive pulmonary disease now on home oxygen. We will continue her oxygen per nasal cannula. She does have p.r.n. nebulizer treatment as needed. 5. Hypertension. Will continue her daily prescribed antihypertensive medications. 6. Deep vein thrombosis prophylaxis being provided with previously mentioned Eliquis. The patient has been placed on the medical floor telemetry. She will have vital signs q.4 hours, will do strict intake and output, daily weights, incentive spirometry, we will continue with the series of cardiac enzymes and repeat a CBC and BMP in the morning. Further orders recommendations pending hospital course, diagnostics and physician evaluation. Dictated by INES Luna for Kelly Barrientos MD cc: MD Berto Escalera MD [facility] CENTERCassidy
[2018-08-19] MEDS: PRILOSEC PO SCH ×2 (06:49→06:51)
[2018-08-19 07:09] LABS: BASO# 0.01 X1000 (0.0-0.2); BASO% 0.1 % (0.0-0.8); EOS# 0.03 X1000 (0.0-0.7); EOS% 0.3 % (0.0-10.0); HEMATOCRIT 38.2 % (37.0-47.0); HEMOGLOBIN 12.2 g/dL (12.0-16.0); IMM GRAN# 0.02 X1000 (0.0-0.04); IMM GRAN% 0.2 % (0.0-0.5); LYMPH# 1.53 X1000 (1.2-3.4); LYMPH% 13.6 % (20.5-51.1); MCHC 31.9 g/dL (33-37); MONO# 1.21 X1000 (0.11-0.59); MONO% 10.8 % (1.7-9.3); MPV 9.5 FL (7.4-10.4); NEUT# 8.41 X1000 (1.4-6.5); PLT 206 X1000 (130-400); RBC 3.94 XMIL (4.2-5.4); RDW 12.9 % (11.5-14.5); WBC 11.21 X1000 (4.8-10.8)
[2018-08-19 07:40] LABS: AGAP 10; ALB/GLOB RATIO 1.6; ALBUMIN 4.4 g/dL (3.5-5.0); ALKALINE PHOSPHATASE 77 U/L (32-104); BUN 27 mg/dL (8-22); CALCIUM 9.4 mg/dL (8.8-10.2); CHLORIDE 89 mmol/L (98-107); COSMO 274; CREATININE 0.9 mg/dL (0.5-0.9); ESTIMATED GFR > 60; GLUCOSE 117 mg/dL (70-104); GOT 20 U/L (10-30); GPT 11 U/L (10-36); POTASSIUM 4.4 mmol/L (3.5-5.1); SODIUM 134 mmol/L (136-145); TCO2 35 mmol/L (25-35); TOTAL BILIRUBIN 0.47 mg/dL (0.20-1.00); TOTAL PROTEIN 7.1 g/dL (6.3-8.3)
[2018-08-19] MEDS ORDERED: XOPENEX NEB INH PRN (08:24)
[2018-08-19] MEDS ORDERED: NS NEB INH SCH (08:30)
[2018-08-19] MEDS ORDERED: LEXISCAN ONE (08:51)
[2018-08-19] MEDS: LEXAPRO PO SCH (13:02)
[2018-08-19] MEDS: COREG PO SCH ×2 (13:02→20:35)
[2018-08-19] MEDS: ALDACTONE PO SCH (13:03)
[2018-08-19] MEDS: COLACE PO SCH ×2 (13:03→20:34)
[2018-08-19] MEDS: ELIQUIS PO SCH ×2 (13:05→20:35)
[2018-08-19] MEDS: FLONASE NAS SCH ×2 (13:05→20:36)
[2018-08-19] MEDS: NORCO-10 PO PRN ×2 (13:06→20:07)
[2018-08-19] MEDS: FOLIC ACID PO SCH (13:06)
[2018-08-19] MEDS: PRINIVIL PO SCH ×2 (13:06→20:35)
[2018-08-19] MEDS: LASIX IV SCH (14:58)
--- NOTE | 2018-08-19 15:06 | Diag Imaging Result Document ---
PROCEDURE NAME: MYOCARDIAL PERF SCAN, STR/REST - 08/18/2018 STUDY: Two day rest/stress Lexiscan myocardial perfusion study. INDICATION: Chest pain. DESCRIPTION: The patient came into the nuclear laboratory on 08/18, received resting injection of technetium 99 sestamibi 25.9 mCi. Multiple tomographic views of the cardiac structure were obtained at rest. Subsequently, the patient underwent infusion of Lexiscan 0.4 mg. At peak infusion, injected with technetium 99 sestamibi 26.2 mCi. Multiple tomographic views of the cardiac structures were obtained following the completion of the protocol. SUMMARY OF THE ELECTROCARDIOGRAPHIC PORTION OF THE STUDY: Resting ECG shows atrial fibrillation, rate is 73 per minute. Resting blood pressure 126/73. ECG at rest shows no significant ST-T abnormality. During the protocol, the heart rate increased to 101 beats per minute. Blood pressure dropped to 90/53. The patient reported no chest pain, shortness of breath, or palpitations. The ECG showed no significant changes. Following the completion of the test, heart rate and blood pressure returned back to baseline. In summary, electrocardiographic response to infusion of Lexiscan is deemed to be normal. SUMMARY OF THE MYOCARDIAL PERFUSION PORTION OF THE STUDY: Poststress tomographic views of the left ventricle showed normal homogeneous distribution of radiotracer throughout the entire left ventricular myocardium. There is no convincing evidence of any postexercise defect. The rest images showed normal perfusion. Polar plots revealed the same. There is no convincing evidence of any inducible ischemia nor myocardial scar. Gated SPECT showed normal left ventricular systolic function. Ejection fraction is estimated at 86% on the rest images, 84% on the poststress images. Using the Myometrix protocol, the resting ejection fraction is 80% and poststress is 85%. The lung/heart ratio is normal at 0.34 on the rest images, 0.31 on the poststress images. TID is normal. The ventricular volumes were normal. SUMMARY: This study shows: 1. Unremarkable electrocardiographic response to infusion of Lexiscan. 2. Essentially normal poststress myocardial perfusion scan. There is no convincing scintigraphic evidence of pharmacologically-induced myocardial ischemia. 3. Normal left ventricular systolic function, ejection fraction on the poststress images is 84%, normal ventricular volume, no wall motion abnormality. This study would represent low risk for ischemic events. Clinical correlation is recommended. cc: MD Massiel Mandel PA
[2018-08-19] MEDS: LASIX PO SCH (16:03)
--- NOTE | 2018-08-19 20:02 | PROGRESS NOTE ---
DATE: 08/19/2018 SUBJECTIVE: Upon my arrival this morning, patient noted that she felt reasonably well. Upon further questioning, patient complained of profound fatigue as she did not sleep well. She noted some shortness of breath but denied overt chest discomfort. This afternoon, upon my arrival, patient was in bed. She stated she felt reasonably well. Her stress test had been completed. Results were pending. The patient does note that she had walked with physical therapy. She had did have some shortness of breath but noted improving strength. OBJECTIVE: Vital signs: T-max 98.4, heart rate 65 to 115, respirations 18 to 25, blood pressure 119 to 150/57 to 75. General: Elderly, no acute distress. Cardiovascular: Irregularly irregular, regular rate. No significant murmurs, rubs, or gallops. Pulmonary: Prolonged expiratory phase. Adequate air movement. Abdomen: Soft. Nontender. Nondistended. Positive bowel sounds. Extremities: Moves all extremities well. No significant clubbing, cyanosis, or edema. Dermatologic: Evaluation reveals no evidence of rash. LABORATORY DATA: White blood cell count 11.21, hemoglobin 12.2, hematocrit 38.2, platelet count 206,000. Sodium 134, potassium 4.4, chloride 89, bicarb 35, BUN 27, creatinine 0.9, glucose 117, calcium 9.4, total bilirubin 0.47, total protein 7.1, albumin 4.4, alkaline phosphatase 77, AST 20, ALT 11. ASSESSMENT AND PLAN: 1. Chest pain--The patient does have a significant cardiac history. I appreciate cardiology's consultation. Stress test has been performed. Results are pending. Depending on the results, we will determine if further cardiac evaluation is warranted. 2. Shortness of breath--The question is raised whether this is secondary to underlying chronic obstructive pulmonary disease or secondary to cardiac etiology. The patient does note improving shortness of breath since admission. Interestingly, she was provided 125 mg of Solu- Medrol in the emergency department. This was not continued, but may be contributing to her improvement. For now, we will rule out cardiac etiology as described above. If this returns negative, we will consider pulmonary rehabilitation. 3. Hypertensive urgency--This certainly could have contributed to her chest discomfort. The patient's blood pressure is much better controlled with her current medical regimen. 4. Coronary artery disease--As above, patient has longstanding disease. It appears her clopidogrel has been discontinued. We will discuss with cardiology whether this should be resumed. For now, we will continue Eliquis therapy. 5. Chronic low back pain--We will continue patient on narcotic intervention prescribed as an outpatient. 6. Atrial fibrillation--Patient is rate controlled. 7. Anticoagulation--We will continue Eliquis therapy. 8. Depression/anxiety--We discussed this in detail. The patient states this may have played a role in her chest discomfort. For now, we will continue Lexapro therapy. DISPOSITION: At this point, patient continues to require jail care in a hospital setting. We will plan discharge home once appropriate. cc: MD Berto Campuzano MD
[2018-08-19] MEDS: PRAVACHOL PO SCH (20:35)
[2018-08-19] MEDS: FERROUS SULFATE PO SCH (20:35)
[2018-08-19] MEDS: CARDIZEM CD PO SCH (20:35)
[2018-08-19] MEDS: DULCOLAX PO SCH (20:35)
[2018-08-20] MEDS: NORCO-10 PO PRN (05:41)
[2018-08-20] MEDS: PRILOSEC PO SCH (06:26)
[2018-08-20 08:11] VITALS: BP 138/78
[2018-08-20] MEDS ORDERED: PLAVIX PO SCH (09:00)
[2018-08-20] MEDS: PRINIVIL PO SCH (09:52)
[2018-08-20] MEDS: ALDACTONE PO SCH (09:52)
[2018-08-20] MEDS: LEXAPRO PO SCH (09:53)
[2018-08-20] MEDS: COREG PO SCH (09:54)
[2018-08-20] MEDS: FOLIC ACID PO SCH (09:54)
[2018-08-20] MEDS: FLONASE NAS SCH (09:54)
[2018-08-20] MEDS: ELIQUIS PO SCH (09:54)
[2018-08-20] MEDS: COLACE PO SCH (09:54)
[2018-08-20] MEDS: LASIX PO SCH (09:55)
--- NOTE | 2018-08-20 10:17 | CARDIOLOGY PROGRESS NOTE ---
DATE: 08/20/2018 CHIEF COMPLAINT: Shortness of breath, chest discomfort, uncontrolled hypertension. SUBJECTIVE: Mrs. Dudley is feeling better. She underwent a stress testing yesterday, which I reviewed, and it shows no evidence of any obvious ischemic defect. Her ejection fraction by echocardiogram is normal. She does have pulmonary hypertension. OBJECTIVE: Vital signs: Blood pressure today is 138/78, pulse 64, respirations 16, temperature 98.4. General: She is awake, alert, elderly, in no distress. HEENT: Unremarkable. Chest: Sounds bilaterally clear today. I do not hear any wheezing. Heart: Sounds are regular and rhythmic. I do not hear a gallop or murmur. Abdomen: Nontender. Extremities: Showed decreased pulses. No peripheral edema. Neurologic exam: Follows commands, moves all 4 extremities. Skin: Shows no rashes. BLOOD WORK: White cell count 11,210, hemoglobin 12.2, hematocrit is 38.2%. Sodium 134, potassium 4.4, BUN 27, creatinine 0.9. IMPRESSION: 1. Patient who presented to the hospital with atypical chest discomfort. 2. History of severe coronary heart disease, previous stent to right coronary artery. 3. History of advanced chronic obstructive pulmonary disease on home oxygen. 4. Hypertension. 5. Hyperlipidemia. 6. History of gastrointestinal bleeding in the past. RECOMMENDATIONS: At this point in time, the patient is encouraged to follow a strict diet, adhere to her medical therapy. Plavix needs to be restarted because she has severe coronary heart disease. She is not on aspirin. She will continue Eliquis. She needs to follow up with her established physicians, and she can be discharged home today as far as I am concerned. Her symptoms are consistent with just advanced COPD with a poorly controlled high blood pressure, which is much better now. cc: MD Berto Mandel MD
--- NOTE | 2018-08-21 10:14 | DISCHARGE SUMMARY ---
ADMISSION DATE: 08/17/2018 DISCHARGE DATE: 08/20/2018 DISCHARGE DIAGNOSES: 1. Shortness of breath. 2. Chronic obstructive pulmonary disease. 3. Paroxysmal atrial fibrillation. 4. Chest pain. HOSPITAL COURSE: The patient was admitted with acute shortness of breath and elevated heart rate with chest pain. She has a myocardial perfusion scan, which was normal, performed by Dr. Soliman. Enzymes were never significantly elevated. The patient was noted to be in atrial fibrillation and had an echocardiogram which showed EF 65%. I saw the patient on the day of discharge and she revealed to me that there has been considerable family turmoil which had seemed to trigger this event. In addition, there was a distinct correlation between her elevated heart rate and onset of out of control with atrial fibrillation and her chest pain and shortness of breath. This had completely resolved and she seemed to be rate controlled. We noted an addition of spironolactone to the patient's medication list at discharge. DISPOSITION: We discussed with the patient and the family. She stated very succinctly that if something bad were to happen to her that they should just "let her go." She stated to me that she did not want resuscitation. I watched the patient walk back from the bathroom with no difficulty or breathing problems. At the time of my examination her heart sounded fine and we discharged her home. She is to follow up with me in 2 to 3 weeks. cc: Berto Madrigal MD
== END 2018-08-20 13:01 | disposition home or self-care (01) | DRG 204 ==
LOC: SUPCPDRO → ED 17:22 → 3N 23:26 → SUATTDRO 23:26
PROVIDERS: ADMIT Internal Medicine; ATTEND Internal Medicine
CPT/HCPCS: 71020; 71046; 78452; 80048; 80053; 80061; 81001; 82550; 82553; 82607; 82728; 82746; 83540; 83550; 83605; 83735; 83880; 84484; 85025; 85610; 85730; 87040; 93005; 93010; 93017; 93306; 94640; 94761; 96374; 96375; 97162; 97530; 99285; A9270; A9500; J1940; J2785; J2930

== ENCOUNTER 2019-03-11 22:38 | Inpatient (IN) ==
[2019-03-11 23:50] LABS: BASO# 0.01 X1000 (0.0-0.2); BASO% 0.2 % (0.0-0.8); EOS# 0.12 X1000 (0.0-0.7); EOS% 2.1 % (0.0-10.0); HEMOGLOBIN 10.5 g/dL (12.0-16.0); LYMPH% 13.8 % (20.5-51.1); MCH 30.9 PG (27-31); MCHC 30.9 g/dL (33-37); MONO# 0.64 X1000 (0.11-0.59); MONO% 11.1 % (1.7-9.3); MPV 9.3 FL (7.4-10.4); NEUT# 4.21 X1000 (1.4-6.5); NEUT% 72.8 % (42.2-75.2); PLT 161 X1000 (130-400); RDW 13.1 % (11.5-14.5); WBC 5.78 X1000 (4.8-10.8)
[2019-03-11 23:56] LABS: INR 1.32; PROTIME 16.6 Seconds (11.0-16.0)
[2019-03-11 23:57] LABS: PTT 34.1 Seconds (22.3-41.8)
[2019-03-12 00:15] LABS: AGAP 10; ALB/GLOB RATIO 1.9; ALKALINE PHOSPHATASE 86 U/L (32-104); BUN 22 mg/dL (8-22); CALCIUM 9.1 mg/dL (8.8-10.2); CHLORIDE 94 mmol/L (98-107); COSMO 269; CREATININE 0.9 mg/dL (0.5-0.9); ESTIMATED GFR > 60; GLUCOSE 111 mg/dL (70-104); GOT 17 U/L (10-30); GPT 7 U/L (10-36); POTASSIUM 5.6 mmol/L (3.5-5.1); SODIUM 132 mmol/L (136-145); TCO2 28 mmol/L (25-35); TOTAL BILIRUBIN 0.42 mg/dL (0.20-1.00); TOTAL PROTEIN 6.1 g/dL (6.3-8.3)
[2019-03-12] MEDS ORDERED: LASIX IV ONE (01:59)
[2019-03-12] MEDS ORDERED: KAYEXALATE PO ONE (01:59)
--- NOTE | 2019-03-12 02:02 | PROVIDER DOCUMENTATION ---
This chart was entered by Emmanuelle Beyer Scribe, acting as scribe for Keyur Gomez MD. HPI-Chest Pain - General Chief Complaint: Chest Pain Stated Complaint: cp Time Seen by Provider: 03/11/19 23:06 Source: patient Allergies/Adverse Reactions: Patient Allergies Allergy/AdvReac Type Severity Reaction Status Date / Time ampicillin Allergy Intermediate HIVES Verified 03/11/19 23:14 Penicillins Allergy Intermediate HIVES Verified 03/11/19 23:14 oxycodone HCl * AdvReac Severe hallucinati Verified 03/11/19 23:14 [From Percocet] ons Home Medications: Home Medication List Medication Instructions Recorded Confirmed Last Taken Type Apixaban [Eliquis] 2.5 mg PO BID 08/27/14 08/17/18 08/17/18 09:30 History Escitalopram Oxalate [Lexapro] 20 mg PO DAILY 08/27/14 08/17/18 08/17/18 09:30 History Fluticasone 50 Mcg Nasal [place] 1 spray YUNG BID 08/27/14 08/17/18 08/17/18 09:30 History [Flonase] Furosemide [Lasix] 20 mg PO DIRECTED 08/27/14 08/17/18 08/17/18 09:30 History Lisinopril 10 mg PO BID 08/27/14 08/17/18 08/17/18 09:30 History Pantoprazole [Protonix] 40 mg PO DAILY 08/27/14 08/17/18 08/17/18 09:30 History Fluticasone Propionate 44 INH 1 - 2 puff INH Q4-6H PRN PRN 08/28/14 08/17/18 2 Days Ago History [Flovent 44 Microgm Hfa] ~09/07/16 Diltiazem HCl [Cartia Xt] 240 mg PO QHS 09/09/16 08/17/18 08/16/18 History Docusate Sodium [Stool Softener] 100 mg PO BID 09/09/16 08/17/18 08/17/18 09:30 History Ferrous Sulfate 325 mg PO QHS 09/09/16 08/17/18 08/16/18 History Levalbuterol Inhaler [Xopenex Hfa] 2 puff PO Q4-6H PRN PRN 09/09/16 08/17/18 Unknown History Methocarbamol [Robaxin-750] 750 mg PO TID PRN PRN 09/09/16 08/17/18 Unknown History Nitroglycerin 0.4 mg SL PRN PRN 09/09/16 08/17/18 09/09/16 09:00 History Potassium Chloride [Klor-Con 10] 20 mg PO DAILY 09/09/16 08/17/18 08/17/18 09:30 History Carvedilol [Coreg] 12.5 mg PO BID tablet 09/11/16 08/17/18 08/17/18 09:30 Rx Clonazepam [Klonopin] 0.25 mg PO QHS #30 tablet 09/11/16 08/17/18 08/16/18 Rx Bisacodyl [Laxative] 5 mg PO HS 08/17/18 08/17/18 08/16/18 History Clonidine HCl 0.1 mg PO DIRECTED 08/17/18 08/17/18 08/17/18 History Folic Acid 1 mg PO DAILY 08/17/18 08/17/18 08/17/18 09:30 History Levalbuterol Neb [Xopenex Neb] 1.25 mg INH DAILY PRN PRN 08/17/18 08/17/18 Unknown History Tamsulosin [Flomax] 0.4 mg PO QHS 08/17/18 08/17/18 08/16/18 History Clopidogrel [Plavix] 75 mg PO DAILY tab 08/20/18 Unknown Rx Hydrocodone/APAP 10 mg/325 mg 1 ea PO Q6H PRN PRN tab 08/20/18 Unknown Rx [[place]-10] PRAVAstatin [Pravachol] 40 mg PO QHS tab 08/20/18 Unknown Rx Spironolactone [Aldactone] 12.5 mg PO DAILY #30 tab 08/20/18 Unknown Rx - History of Present Illness-CP Nature of Presenting Problem: Pt is a 78 yof who presents to the ED w/ CC of sob & chest pain. Pt states that the SOB began a week ago but chest pressure began today. Pt has a hx of COPD and 2 heart attacks. Pt daughter states that she called EMS after the pts blood pres sure increased. Location: reports: central Chest Pain Radiation: reports: no radiation Quality of Pain: reports: pressure Severity in ED: mild Onset/Duration: 1 week ago Timing: still present Context/Activities at Onset: reports: none Modifying Factors: improves with: other (walking) Nitro Today/Relief: provided by EMS Prior Chest Pain/Cardiac Workup: reports: heart attack Similar Symptoms Previously?: Yes Recently Seen Here or By Another Healthcare Provider: Yes Review of Systems - Adult - REVIEW OF SYSTEMS - ADULT Constitutional: reports: see HPI Eyes: reports: no symptoms reported Ears, Nose, Mouth & Throat: reports: no symptoms reported Cardiovascular: reports: see HPI, chest pain Respiratory: reports: see HPI, shortness of breath Gastrointestinal: reports: no symptoms reported Genitourinary: reports: no symptoms reported Musculoskeletal: reports: no symptoms reported Integumentary: reports: no symptoms reported Neurological: reports: no symptoms reported Psychiatric: reports: no symptoms reported Endocrine: reports: no symptoms reported Hematologic/Lymphatic: reports: no symptoms reported Allergic/Immunologic: reports: no symptoms reported All Other Systems: Reviewed and Negative Past History - Adult - PAST MEDICAL HISTORY-ADULT Review of Records: reports: Nursing Assessment Review, Medications Reviewed, Social history reviewed & non-contributory. Major Childhood Illnesses: reports: denies history Cardiovascular: reports: A-Fib, CAD, HTN, hyperlipidemia, [place] Respiratory: reports: COPD Gastrointestinal: reports: diverticulosis, GI bleed Obstetrical/Gynecological: reports: denies history Genitourinary: reports: denies history Musculoskeletal: reports: chronic pain, intervertebral disc disease Neurological: reports: denies history Psychiatric: reports: anxiety Endocrine/Immune: reports: denies history Other Conditions: reports: denies history - PRIOR SURGERIES/PROCEDURES Surgical/Procedure History: reports: hysterectomy, other (colectomy) - IMMUNIZATION STATUS Childhood Immunizations: See Nurse Assessment Flu Vaccine: See Nurse Assessment - FAMILY HISTORY Family History: reviewed, not pertinent - SOCIAL HISTORY Smoking: quit greater than 1 year Substance Use: denies Living Situation: family Physical Exam-General - PHYSICAL EXAM-ADULT Initial Vital Signs Reviewed: Yes - CONSTITUTIONAL General Appearance: alert, no apparent distress - EYES Eyes: PERRL/EOMI, pink conjunctivae - HEAD, EARS, NOSE, MOUTH & THROAT HENMT: normocephalic/atraumatic, moist mucous membranes - NECK Neck: non-tender, full range of motion, supple, normal inspection - RESPIRATORY Respiratory: chest non-tender, lungs clear, no pleuratic chest pain, no respiratory distress, no accessory muscle use - CARDIOVASCULAR Cardiovascular: normal peripheral pulses, no edema, no gallop, no JVD, no murmur . negative: regular rate, rhythm (irregular but controlled) - GASTROINTESTINAL (ABDOMEN) Abdominal Exam: normal bowel sounds, non tender, soft, no organomegaly, no pulsatile mass - LYMPHATIC Lymphatic: no adenopathy - MUSCULOSKELETAL Back Exam: normal inspection, no CVA tenderness, no vertebral tenderness Extremity: normal range of motion, non-tender, normal inspection - SKIN Integumentary: normal color, normal turgor, warm/dry - NEUROLOGIC Neurologic: synchro assembler II-XII nml as tested, grossly normal, no motor/sensory deficits - PSYCHIATRIC Psych/Mental Status: normal mood/affect, normal thought content, normal thought process, oriented x 3 - HEART Score HEART Score: History: Moderately Suspicious HEART Score: ECG: Non-Specific Repolarization Disturbance/LBBB/PM HEART Score: Age: > or = 65 Years HEART Score: Risk Factors for Atherosclerotic Disease: 1 or 2 Risk Factors HEART Score: Troponin: < or = Normal Limit Total HEART Score:: 5 Progress - PLAN OF CARE/RESULTS Progress/Plan/Lab Results: Vital Signs - 8 hr 03/11/19 23:00 Temperature 98.2 F Pulse Rate 94 H Respiratory Rate 16 Blood Pressure 144/73 O2 Sat by Pulse Oximetry 95 Laboratory Results - last 24 hr 03/11/19 03/11/19 03/11/19 23:37 23:37 23:37 WBC 5.78 RBC 3.40 L Hgb 10.5 L Hct 34.0 L MCV 100.0 H MCH 30.9 MCHC 30.9 L RDW Std Deviation 13.1 Plt Count 161 MPV 9.3 Immature Gran % (Auto) 0.0 Neut % (Auto) 72.8 Lymph % (Auto) 13.8 L Becker % (Auto) 11.1 H Eos % (Auto) 2.1 Baso % (Auto) 0.2 Immature Gran # (Auto) 0.00 Neut # (Auto) 4.21 Lymph # (Auto) 0.80 L Becker # (Auto) 0.64 H Eos # (Auto) 0.12 Baso # (Auto) 0.01 PT INR PTT (Actin FS) Sodium 132 L Potassium 5.6 H Chloride 94 L Carbon Dioxide 28 Anion Gap 10 BUN 22 Creatinine 0.9 Estimated GFR/1.73 m2 > 60 BUN/Creatinine Ratio 24 Glucose 111 H Calculated Osmolality 269 Calcium 9.1 Total Bilirubin 0.42 AST 17 ALT 7 L Alkaline Phosphatase 86 Troponin T Aty-K-Ofhshrrwvbp Pept 3109 H Total Protein 6.1 L Albumin 4.0 Globulin 2.1 Albumin/Globulin Ratio 1.9 03/11/19 03/11/19 23:37 23:37 WBC RBC Hgb Hct MCV MCH MCHC RDW Std Deviation Plt Count MPV Immature Gran % (Auto) Neut % (Auto) Lymph % (Auto) Becker % (Auto) Eos % (Auto) Baso % (Auto) Immature Gran # (Auto) Neut # (Auto) Lymph # (Auto) Becker # (Auto) Eos # (Auto) Baso # (Auto) PT 16.6 H INR 1.32 PTT (Actin FS) 34.1 Sodium Potassium Chloride Carbon Dioxide Anion Gap BUN Creatinine Estimated GFR/1.73 m2 BUN/Creatinine Ratio Glucose Calculated Osmolality Calcium Total Bilirubin AST ALT Alkaline Phosphatase Troponin T < 0.010 Ica-N-Mbvdhirllmm Pept Total Protein Albumin Globulin Albumin/Globulin Ratio Orders Category Date Time Status Nursing- Obtain EKG ONCE Care 03/11/19 23:16 Active cxr [CHEST-1 VIEW] [RAD] Stat Exams 03/11/19 23:16 Taken CBC WITH ELECTRONIC DIFF [HEME] Stat Lab 03/11/19 23:37 Completed COMPREHENSIVE METABOLIC PANEL [CHEM] Stat Lab 03/11/19 23:37 Completed PRO B-NATRIURETIC PEPTIDE Stat Lab 03/11/19 23:37 Completed PROTIME WITH INR [COAG] Stat Lab 03/11/19 23:37 Completed PTT [COAG] Stat Lab 03/11/19 23:37 Completed TROPONIN T Stat Lab 03/11/19 23:37 Completed EKG [EKG] Stat Ther 03/11/19 23:16 Ordered Result Diagrams: 03/11/19 23:37 03/11/19 23:37 - CONSULTS/PCP/HOSPITALIST Notification #1 *Consult/PCP/Hospitalist*: Dr Pascal Time Discussed: 02:00 Consult Disposition: Will see in ED, Admit Departure - Departure Date of Disposition Decision: 03/12/19 Time of Disposition Decision: 02:01 DIAGNOSIS: CHF (congestive heart failure), Chest pain, Hypoxemia, Hyponatremia, Atrial fibrillation Disposition: ADMITTED INPATIENT 09 Certified Medical Emergency: Emergent Condition: Fair - Critical Care Note This patient required my direct & personal management of CC.: No Attestation - Physician/ COLLETTE Attestation Patient care was provided by Advanced Practice Provider:: No The physician spent face to face time with patient:: Yes Advanced Practice Provider documentation review:: Supervising physician onsite and consulted in the evaluation and care of this patient. The physician did have a face to face encounter with the patient. This chart was documented by the indicated scribe, (Emmanuelle Beyer Scribe) and accurately reflects the services I performed and decisions made by me, Keyur Gomez MD, as attested by the provider's signature.
--- NOTE | 2019-03-12 05:15 | EKG Report ---
Test Performed on : 03/11/2019 10:41:31 PM Test Reason : cp Blood Pressure : / mmHG Vent. Rate : 102 BPM Atrial Rate : 117 BPM P-R Int : 000 ms QRS Dur : 078 ms QT Int : 342 ms P-R-T Axes : 000 067 040 degrees QTc Int : 445 ms Atrial fibrillation. with rapid ventricular response. Abnormal ECG When compared with ECG of 06-FEB-2019 16:36, (Unconfirmed) Atrial fibrillation. has replaced Sinus rhythm. QRS voltage has decreased Nonspecific T wave abnormality now evident in Inferior leads T wave amplitude has decreased in Anterolateral leads Unconfirmed Result
--- NOTE | 2019-03-12 06:20 | Diag Imaging Result Doc PS360 ---
EXAM: CHEST-1 VIEW HISTORY: cp TECHNIQUE: Single view COMPARISON: None. FINDINGS: The lungs are well expanded. The heart is mildly enlarged. The vessels are distended. There are increased interstitial markings in the mid right lung which are more prominent than on the prior study. No effusion identified. IMPRESSION: 1.Cardiomegaly with mild pulmonary edema 2.Infiltrate or mass in the mid right lung. Short-term follow-up or CT recommended. Electronically signed by Lebron Sarkar 03/12/2019 6:17 AM
[2019-03-12 07:06] LABS: BASO# 0.01 X1000 (0.0-0.2); BASO% 0.3 % (0.0-0.8); EOS# 0.08 X1000 (0.0-0.7); EOS% 2.3 % (0.0-10.0); HEMATOCRIT 37.8 % (37.0-47.0); HEMOGLOBIN 11.9 g/dL (12.0-16.0); LYMPH# 0.74 X1000 (1.2-3.4); LYMPH% 21.1 % (20.5-51.1); MCH 31.2 PG (27-31); MCHC 31.5 g/dL (33-37); MCV 99.2 FL (81-99); MONO# 0.54 X1000 (0.11-0.59); MONO% 15.4 % (1.7-9.3); MPV 9.3 FL (7.4-10.4); NEUT# 2.13 X1000 (1.4-6.5); NEUT% 60.9 % (42.2-75.2); PLT 163 X1000 (130-400); RBC 3.81 XMIL (4.2-5.4)
[2019-03-12 07:41] LABS: AGAP 13; ALB/GLOB RATIO 2.1; ALBUMIN 4.8 g/dL (3.5-5.0); ALKALINE PHOSPHATASE 97 U/L (32-104); BUN 19 mg/dL (8-22); CHLORIDE 93 mmol/L (98-107); COSMO 276; CREATININE 0.9 mg/dL (0.5-0.9); ESTIMATED GFR > 60; GLUCOSE 98 mg/dL (70-104); GOT 14 U/L (10-30); GPT 8 U/L (10-36); MAGNESIUM 1.6 mg/dL (1.5-2.7); POTASSIUM 4.4 mmol/L (3.5-5.1); SODIUM 137 mmol/L (136-145); TCO2 31 mmol/L (25-35); TOTAL BILIRUBIN 0.62 mg/dL (0.20-1.00); TOTAL PROTEIN 7.1 g/dL (6.3-8.3)
--- NOTE | 2019-03-12 07:51 | EKG Report ---
Test Performed on : 03/12/2019 07:39:04 AM Test Reason : CP,CHF Blood Pressure : / mmHG Vent. Rate : 090 BPM Atrial Rate : 241 BPM P-R Int : 000 ms QRS Dur : 082 ms QT Int : 384 ms P-R-T Axes : 000 074 031 degrees QTc Int : 469 ms Atrial fibrillation. with premature ventricular or aberrantly conducted complexes. Abnormal ECG When compared with ECG of 11-MAR-2019 22:41, (Unconfirmed) No significant change was found Confirmed by Yefri MORRIS, Popeye ([id number]) on 03/12/2019 10:41:21 AM
[2019-03-12] MEDS: COREG PO SCH ×2 (09:14→21:59)
[2019-03-12] MEDS: PRINIVIL PO SCH ×2 (09:14→22:01)
[2019-03-12] MEDS ORDERED: ROCEPHIN 1 GM in NS 50 ML IV SCH (09:30)
[2019-03-12] MEDS ORDERED: ZITHROMAX 500 MG/NS 500 MG/250 ML IVPB IV SCH (09:30)
--- NOTE | 2019-03-12 10:31 | Diag Imaging Result Doc PS360 ---
EXAM: CT THORAX W/O CONTRAST 03/12/2019 HISTORY: edema, ?pneumonia, ? mass TECHNIQUE: This exam was performed using automated exposure control, adjustment of mA or kV according to patient size, and/or use of iterative reconstruction technique. COMMENT: There are no previous thoracic studies. There are bilateral pleural effusions. There is extensive coronary calcification. There are some aorticopulmonary window nodes exceeding 13 mm in size. There is a somewhat lobulated mass is present just above the minor fissure in the right upper lobe measuring over 2.3 cm in transverse dimension with stranding and thickening of the adjacent pleura. There is COPD. There is slightly increased interstitial markings which may be due to mild pulmonary edema. There is a pleural-based nodule in the right middle lobe on image 69 measuring 6 mm in diameter. There is a subcentimeter stone in the gallbladder. The adrenal glands are not enlarged. IMPRESSION: Right upper lobe mass. Bilateral pleural effusions. Nonspecific mediastinal adenopathy. Interstitial pulmonary edema. Right middle lobe nodule. Cholelithiasis. Electronically signed by Carloz Castrejon 03/12/2019 10:28 AM
[2019-03-12] MEDS ORDERED: ROBAXIN PO PRN (10:36)
[2019-03-12] MEDS ORDERED: NS NEB INH SCH (11:00)
[2019-03-12] MEDS: XOPENEX NEB INH PRN (11:41)
[2019-03-12] MEDS: ATROVENT NEB INH PRN ×2 (11:41→15:59)
[2019-03-12] MEDS: LEXAPRO PO SCH (12:16)
[2019-03-12] MEDS: ELIQUIS PO SCH ×2 (12:16→22:00)
[2019-03-12] MEDS: PLAVIX PO SCH (12:16)
[2019-03-12] MEDS: FOLIC ACID PO SCH (12:17)
[2019-03-12] MEDS: FLONASE NAS SCH ×2 (12:17→22:05)
[2019-03-12] MEDS: COLACE PO SCH ×2 (12:20→22:00)
[2019-03-12] MEDS: PROTONIX PO SCH (12:20)
--- NOTE | 2019-03-12 14:59 | PROGRESS NOTE ---
DATE: 03/12/2019 HISTORY: The patient was brought to the emergency room last night for shortness of breath which has been ongoing for a week or so. I interviewed and examined the patient and discussed the care plan with the nurse practitioner, who had admitted her overnight and was going to do the dictation. I think that her decline is multifactorial with influencing factors including chronic progressive COPD with chronic shortness of breath and hypoxemia, a history of heart disease and atrial fibrillation, a history of anxiety with panic disorder and a difficult social situation at home. A patient with this medical history showing up in the emergency room is almost assuredly going to be admitted because there are some abnormalities present and she is at risk. Ultimately though, her overall trajectory is a long, slow downward decline. This has been explained to her and her daughter on multiple occasions. Hopefully, we can have her in the hospital for a day or two, recheck enzymes to make sure that there is no myocardium at risk and optimize her medications for more comfortable home living. Another issue influencing this is relative noncompliance. I think that both the patient and her daughter get very anxious about blood pressures and oxygen levels and tend to alter the medication regimen as they feel it is appropriate. I will reinforce to them that we need the consistent use of medications to maintain stability. At the time of this dictation the H and P had not been dictated and final orders had not been put in, but they were discussed at length with the nurse practitioner. cc: Berto Madrigal MD
[2019-03-12] MEDS: NORCO-10 PO PRN ×2 (15:59→22:06)
[2019-03-12] MEDS ORDERED: PRAVACHOL PO SCH (21:00)
[2019-03-12] MEDS ORDERED: DULCOLAX PO SCH (21:00)
[2019-03-12] MEDS ORDERED: FERROUS SULFATE PO SCH (21:00)
[2019-03-12] MEDS ORDERED: CARDIZEM CD PO SCH (21:00)
[2019-03-12] MEDS ORDERED: LASIX IV SCH (21:00)
[2019-03-12] MEDS ORDERED: FLOMAX PO SCH (21:00)
[2019-03-12] MEDS: KLONOPIN PO PRN (22:04)
[2019-03-13 04:37] LABS: URINE SOURCE CLEAN CATCH
[2019-03-13 04:39] LABS: BILIRUBIN URINE NEGATIVE (NEGATIVE); BLOOD URINE NEGATIVE (NEGATIVE); COLOR YELLOW; GLUCOSE URINE NEGATIVE (NEGATIVE); KETONE URINE NEGATIVE (NEGATIVE); LEUKOCYTES URINE TRACE (NEGATIVE); NITRITE URINE NEGATIVE (NEGATIVE); PH URINE 6.5; PROTEIN URINE 100 mg/dL (NEGATIVE); TURBIDITY URINE HAZY (CLEAR); UROBILINOGEN URINE NORMAL (NORMAL)
[2019-03-13 04:40] LABS: UR EPITHELIAL CELLS <10 /HPF (<10); URINE BACTERIA 2+ /HPF; URINE RBC <10 /HPF (<10)
[2019-03-13 07:36] LABS: BASO# 0.01 X1000 (0.0-0.2); BASO% 0.2 % (0.0-0.8); EOS# 0.08 X1000 (0.0-0.7); EOS% 1.9 % (0.0-10.0); HEMOGLOBIN 12.6 g/dL (12.0-16.0); LYMPH# 0.86 X1000 (1.2-3.4); MCH 30.7 PG (27-31); MCHC 31.5 g/dL (33-37); MCV 97.6 FL (81-99); MONO# 0.72 X1000 (0.11-0.59); MONO% 16.7 % (1.7-9.3); MPV 9.1 FL (7.4-10.4); NEUT# 2.64 X1000 (1.4-6.5); NEUT% 61.2 % (42.2-75.2); PLT 183 X1000 (130-400); WBC 4.31 X1000 (4.8-10.8)
[2019-03-13 08:06] LABS: CALCIUM 9.4 mg/dL (8.8-10.2); POTASSIUM 3.7 mmol/L (3.5-5.1)
[2019-03-13] MEDS ORDERED: LASIX IV SCH (09:00)
[2019-03-13] MEDS: ATROVENT NEB INH PRN (09:19)
[2019-03-13] MEDS: XOPENEX NEB INH PRN (09:19)
[2019-03-13] MEDS: FOLIC ACID PO SCH (09:32)
[2019-03-13] MEDS: PROTONIX PO SCH (09:32)
[2019-03-13] MEDS: ELIQUIS PO SCH (09:33)
[2019-03-13] MEDS: COLACE PO SCH (09:33)
[2019-03-13] MEDS: PLAVIX PO SCH (09:33)
[2019-03-13] MEDS: LEXAPRO PO SCH (09:33)
[2019-03-13] MEDS: COREG PO SCH (09:33)
[2019-03-13] MEDS: FLONASE NAS SCH (09:35)
[2019-03-13] MEDS: PRINIVIL PO SCH ×2 (09:36→09:47)
[2019-03-13] MEDS: NORCO-10 PO PRN (10:17)
[2019-03-13] MEDS ORDERED: CARDIZEM PO ONE (10:53)
[2019-03-13 11:18] VITALS: BP 120/78
[2019-03-13] MEDS: KLONOPIN PO PRN (11:25)
--- NOTE | 2019-03-13 13:57 | HISTORY AND PHYSICAL ---
PRIMARY CARE PROVIDER: Dr. Berto Madrigal. DATE AND TIME: 03/12/2019 at 0815. CHIEF COMPLAINT: Shortness of breath. HISTORY OF PRESENT ILLNESS: Ms. Dudley is a 78-year-old female, who does have a history of having congestive heart failure, coronary artery disease, status post stent placement, pulmonary hypertension, COPD on home oxygen, chronic atrial fibrillation, chronic pain, anxiety and depression. The patient states that for the past week now she has had progressively worsening shortness of breath. She denies shortness of breath at rest, though does report that she is having exertional dyspnea. Also, the patient's daughter stated that when the patient has been up exerting herself, that her oxygen saturations while wearing her oxygen has been dropping into the high 80s. From what I understand, she does wear nasal cannula 3 L continuously at home. She also reports that she has been having some intermittent chest pressure, though states this has subsided at this time. From what I understand, the patient did receive nitroglycerin and aspirin prior to arrival. The patient reports that she has not been having any orthopnea. She has not had any paroxysmal nocturnal dyspnea. They also report that her blood pressure had been elevated as well. They deny her having any dizziness. She did state that she briefly had a headache, though this subsided very quickly. This was earlier in the day on the 11 of March. The chest pain that she is reporting is a pressure-type pain. It comes on when she becomes short of breath, when she is exerting herself and, once she sits down and rests, she states the chest pain does subside. She denies any cough. She denies any abdominal pain, though states that she did feel that her stomach might be a little more swollen than normal. She denied any nausea, vomiting, or diarrhea. She denies any hematochezia or melena. She denies any dysuria. The patient was incontinent in the bed, though had been given Lasix, though she denies any swelling in extremities. She also denies any fever, body aches or chills. Upon talking with the daughter and the patient further, it does seem that the patient likely has a lot of anxiety. The daughter states that she does become nervous and gets herself worked up when she knows that she has to work and she may not be there at the house with her. This was especially worse since she had already kind of been feeling more short of breath than normal, though she denied any recent weight gain or feeling as though her clothes were fitting tighter than normal. Upon evaluation in the ER, she was noted to have some mild hyponatremia with a sodium of 132, potassium of 5.6. CK and troponin were within normal limits, though proBNP was elevated at 3109. She did also have a chest x-ray performed which did show cardiomegaly with mild pulmonary edema. There was also noted to be an infiltrate or mass in the mid right lung. Radiology did recommend CT follow-up. We did perform a CT of thorax without contrast which did show a right upper lobe mass, bilateral pleural effusions, nonspecific mediastinal adenopathy, interstitial pulmonary edema, as well as a right middle lobe nodule. After receiving just a small dose of Lasix 20 mg IV in the ER, the patient according to her has had a fair amount of urine output, though. Unfortunately this was not measured, though she does state she feels better. They also gave her Kayexalate 30 g p.o. as well. Upon recheck labs this morning, her sodium level, as well as potassium level were all back within normal limits. Repeat cardiac enzymes were also negative as well. In the ER, her heart rate has been a little elevated. She does have chronic atrial fibrillation, though she denies feeling as though her heart is racing away or having palpitations at home. Blood pressure is also well elevated. We are going to go ahead and give her rarely prescribed medicine of Coreg, as well as lisinopril for treatment of both of these. She denied missing any of her nighttime doses of any of her medicines last night. At the time of my assessment of the patient, Dr. Madrigal, her regular primary care physician, was at bedside as well. I did discuss the case with him and followed his recommendations as well for her further care. We have continued pretty much all of her regularly prescribed home medications, except for her spironolactone given that she did have elevated potassium upon arrival. We did decide to go ahead and place her on just a small dose of 20 mg of Lasix IV daily. Also I did inform him of the patient's CT thorax results with the findings of the pulmonary mass, and he did state okay to consult Dr. Holman of Pulmonology for further evaluation. The patient was placed on the medical floor with telemetry. REVIEW OF SYSTEMS: A 14 point review of systems was conducted with the patient. All were negative, except for pertinent positives mentioned in the above HPI. PAST MEDICAL HISTORY: 1. History of coronary artery disease, status post stent placement. 2. Congestive heart failure. 3. Chronic low back pain. 4. Anxiety and depression. 5. Chronic anticoagulation with Eliquis. 6. Pulmonary hypertension. 7. Hypertension. 8. Chronic constipation. 9. Folic acid deficiency. 10. Vitamin B 12 deficiency. 11. Gastroesophageal reflux disease. 12. Hyperlipidemia. 13. Chronic atrial fibrillation. 14. COPD on home oxygen. 15. History of diverticular rupture with colostomy and subsequent reversal. PAST SURGICAL HISTORY: 1. Cardiac stent placement. 2. Surgical repair of a diverticular rupture with colostomy placement and subsequent reversal. SOCIAL HISTORY: The patient is a former smoker. She is . She does have a daughter who helps take care of her. I think previously she did live alone, though after speaking with Dr. Madrigal, I do believe that the patient and the daughter do live together at this time. She reportedly does require ambulatory assistance at times. There is no known alcohol or illicit drug use history. FAMILY HISTORY: The patient's mother at age 71 secondary to complications from diabetes mellitus. Her father at age 48 secondary to a myocardial infarction. ALLERGIES: Patient has allergies to penicillin, ampicillin, and oxycodone. HOME MEDICATIONS: 1. Eliquis 2.5 mg p.o. b.i.d. 2. Bisacodyl 5 mg p.o. at bedtime. 3. Coreg 12.5 mg p.o. b.i.d. 4. Klonopin 0.25 mg p.o. at bedtime. 5. Clonidine 0.1 mg p.o. as directed. 6. Plavix 75 mg p.o. daily. 7. Cardia XT 240 mg p.o. at bedtime. 8. Docusate sodium 100 mg p.o. b.i.d. 9. Lexapro 20 mg p.o. daily. 10. Ferrous sulfate 325 mg p.o. at bedtime. 11. Flonase nasal spray intranasally b.i.d. 12. Flovent 44 mcg HFA inhaler 1 to 2 puffs inhaled q. 4-6 hours p.r.n. 13. Folic acid 1 mg p.o. daily. 14. Greenwood 10 one tablet p.o. q. 6 hours p.r.n. 15. Xopenex HFA inhaler 2 puffs inhaled q. 4-6 hours p.r.n. 16. Xopenex nebulizer 2.25 mg inhaled daily p.r.n. 17. Lisinopril 10 mg p.o. b.i.d. 18. Robaxin 750 mg p.o. t.i.d. p.r.n. 19. Nitroglycerin 0.4 mg sublingual p.r.n. 20. Protonix 40 mg p.o. daily. 21. Potassium chloride 20 mg p.o. daily. 22. Pravastatin 40 mg p.o. at bedtime. 23. Aldactone 12.5 mg p.o. daily. 24. Flomax 0.4 mg p.o. at bedtime. DIAGNOSTIC DATA/LABORATORY RESULTS: White blood cell count is 5780, hemoglobin 10.5, hematocrit 34, platelet count is 161. PT 16.6, INR 1.32, PTT is 34.1. Sodium 132, potassium 5.6, chloride 94, serum bicarbonate 28. BUN 22, creatinine 0.9, glucose 111, calcium 9.1, magnesium 1.6. Liver function tests within normal limits. CK 140, troponin less than 0.01. ProBNP is 3109. EKG showed atrial fibrillation with rapid ventricular response at a rate of 102 with a QTc of 445. Chest x-ray showed cardiomegaly with mild pulmonary edema. There was also noted to be an infiltrate or mass in the mid right lung zone. Short-term followup or CT was recommended. CT thorax without contrast did show a right upper lobe mass, bilateral pleural effusions, nonspecific mediastinal adenopathy, interstitial pulmonary edema, right middle lobe nodule and cholelithiasis. Please see full CT report for detailed findings. PHYSICAL EXAMINATION: VITAL SIGNS: Temperature 98.5 degrees, heart rate 82, respirations 17, blood pressure is 171/113, oxygen saturation is 100% nasal cannula at 3 L. GENERAL: Ms. Dudley is a pleasant, elderly 78-year-old female. She was resting in the ER stretcher. She was in no acute distress. She was awake, alert, and able to answer questions appropriately. HEENT: Head atraumatic, normocephalic. Pupils are equal, round, reactive to light, were 3 mm bilaterally and brisk. Oral mucosa is moist. Oropharynx clear. NECK: Supple. Trachea midline. There was some very slight JVD noted upon examination. She did have hepatojugular reflux. CARDIOVASCULAR: Patient has S1, S2 present. No murmurs, gallops, rubs appreciated, though she did have a tachycardic rate that was an irregularly irregular rhythm. She did appear to be in atrial fibrillation on the bedside monitor. PULMONARY: Patient has symmetrical chest expansion bilaterally. Lung sounds were clear in upper lung kennedy. She did have some slight crackles noted in bilateral bases, though this was very slight. ABDOMEN: Soft, nontender. Does not appear to be distended. The patient does have a slightly protuberant abdomen noted. Bowel sounds are present in all 4 quadrants, were normoactive. EXTREMITIES: No cyanosis or edema noted. Pulse, motor, and sensory were intact in all extremities. Radial and pedal pulses were 2+ bilaterally. INTEGUMENTARY: The patient's skin is pink, warm, and dry. NEUROLOGICAL: Patient is alert and oriented to person, place, and time. She is able to answer questions appropriately and follow commands. She is able to move all extremities. There were no focal neurological deficits noted. ASSESSMENT AND PLAN: 1. Congestive heart failure. The patient does appear to be in a slight mild exacerbation. She did respond well to the initial 20 mg Lasix intravenous that was given. We will continue Lasix 20 mg intravenous daily. We will do strict intake and output, daily weights. We will do a series of cardiac enzymes. She will be on a heart healthy diet. We have held her MiraLAX alone given her elevated potassium upon arrival. The patient's last known ejection fraction was 65% in July 2018. 2. Chest pain. This has resolved at this time. The patient reported that her chest pain onset was when she became short of breath when exerting herself and, once she sat down and rested, chest pain did resolve. Her cardiac enzymes so far have been negative. The patient does have chronic atrial fibrillation. She did not have any acute EKG changes when her EKG was compared most recently in January. She did receive according to ER notes a 325 mg aspirin prior to arrival. We will continue her regularly prescribed cardiac medications. We will continue to follow. 3. Acute on chronic hypoxic respiratory failure. The patient at this time is maintaining oxygen saturations 100% on nasal cannula at 3 liters, though her daughter was reporting upon exertion that her oxygen saturations were dropping into the high 80s. The patient does report that her shortness of breath has improved since receiving the Lasix intravenous. We will continue her home oxygen and continue to follow. 4. Chronic obstructive pulmonary disease. This does not appear to be in exacerbation at this time. We will continue with her regularly prescribed medications, her home oxygen. We have ordered her to have Xopenex, Atrovent and DuoNeb treatments as needed. 5. Chronic atrial fibrillation. The patient's heart rate was up a little bit. We are going to go ahead and give her Coreg this morning to help her heart rate and her blood pressure. We will also continue her other medication of Cardizem and her anticoagulant Eliquis. 6. Hyperkalemia. This was a mild elevation at 5.6; this could have been secondary to her medication of spironolactone. After being given Lasix intravenous and Kayexalate in the emergency room, upon recheck her potassium had improved to 4.4. We will continue to monitor. 7. Hypertension. We will continue her regularly prescribed medications. 8. Right upper lobe mass per CT thorax. For further evaluation of this, we have placed a consultation with Dr. Holman with Pulmonology. We will await his evaluation and recommendations. 9. Chronic pain. We have continued her regularly prescribed pain medications. 10. Anxiety, depression. We have continued her Klonopin and Lexapro. 11. Deep vein thrombosis prophylaxis. Provided with her regularly prescribed Eliquis. The patient has been placed on the medical floor telemetry. She will have vital signs q. 4 hours. Further orders and recommendations pending hospital course, diagnostic studies, and physician evaluation. Dictated by INES Luna for Marco Antonio Becerra MD cc: MD Berto Townsend MD Patient presenting with shortness of breath. probnp level is raised. Cxr shows cardiomegaly with mild pulmonary edema. I agree with the assessment and plan of the B[employer] MACHINE OPERATOR. Dr. Mariam PETERSON
[2019-03-13] MEDS ORDERED: TEARISOL OPH SOLUTION BOTH EYES PRN (14:24)
--- NOTE | 2019-03-14 00:11 | PULMONOLOGY CONSULTATION ---
DATE: 03/13/2019 REASON FOR CONSULTATION: Right upper lobe mass. HISTORY OF PRESENT ILLNESS: Ms Dudley is a 78-year-old white female with severe COPD, severe pulmonary hypertension, coronary artery disease, and chronic hypoxemic respiratory failure, who had progressive shortness of breath and lower extremity edema prior to admission. The patient was evaluated in the emergency room for chest pain and was admitted to rule out myocardial infarction. CT scan of the thorax was performed which revealed a 2.3 cm mass in the right upper lobe along with bilateral pleural effusions and a small 6 mm pleural- based nodule. The patient has received Lasix with some diuresis and she clinically feels significantly better and is being prepared for discharge. PAST MEDICAL HISTORY: 1. Severe chronic obstructive pulmonary disease. 2. Severe pulmonary hypertension. 3. Systolic heart failure. 4. Coronary artery disease status post stent placement. 5. Anxiety/depressive disorder. 6. Chronic hypoxemic respiratory failure. 7. Chronic back pain. 8. Gastroesophageal reflux disease. 9. Chronic atrial fibrillation. 10. History of colostomy with reversal due to diverticulitis. SOCIAL HISTORY: Extensive tobacco use in the past, but currently a nonsmoker. No known alcohol use. FAMILY HISTORY: Was noncontributory to current presentation. REVIEW OF SYSTEMS: Notable for generalized weakness, shortness of breath with any exertion, lower extremity edema which has improved. PHYSICAL EXAMINATION: General: Reveals a frail white female with a BMI of 21. Vital Signs: Blood pressure 119/60, heart rate 103, respiratory rate 21, oxygen saturation 100%. HEENT: Pupils are equal and reactive. Oropharynx appears clear. Neck: Supple. Chest: Reveals prolonged expiratory phase with crackles in the bases. Cardiac: S1, S2. Irregular rhythm. Abdomen: Soft. Extremities: Reveal trace edema. LABORATORIES: CT scan as per HPI. White blood count 4.31, hemoglobin 12.6, platelet count 83,000. IMPRESSION: A 78-year-old with: 1. Severe chronic obstructive pulmonary disease. 2. Severe pulmonary hypertension. 3. Chronic hypoxemic respiratory failure. 4. Right upper lobe mass. 5. Right middle lobe nodule. DISCUSSION: A 78-year-old with problems outlined above. The right upper lobe mass was likely present in July and does appear to have increased in size. This most likely represents a lung cancer. The patient is clearly not a surgical candidate given her severe COPD with pulmonary hypertension. She would be a candidate for stereotactic body radiotherapy to this lesion if she elected to pursue a biopsy. She would be at risk for pneumothorax and would also have to discontinue her anticoagulation which would put her at risk for vascular events. All questions were answered. PLAN: 1. The patient to consider CT-guided biopsy of the right upper lobe mass. 2. The patient is scheduled to see Dr. Madrigal on Friday. I can see the patient if necessary and at her request. cc: MD Berto Adams MD
--- NOTE | 2019-03-15 07:38 | DISCHARGE SUMMARY ---
ADMISSION DATE: 03/12/2019 DISCHARGE DATE: 03/13/2019 DISCHARGE DIAGNOSES: 1. Acute on chronic congestive heart failure. 2. New right upper lobe lung mass. 3. Respiratory failure with hypoxemia, chronic. 4. Chronic obstructive pulmonary disease. 5. Chronic atrial fibrillation. 6. Chronic use of anticoagulants. 7. Hypertension. 8. Other chronic pain. 9. Anxiety. CONSULTATIONS: Manda Barney, pulmonology. HOSPITAL COURSE: This 78-year-old, white female was admitted to the hospital acutely after a 1-week history of progressive worsening shortness of breath. The patient was found to be mildly fluid overloaded and was diuresed quite easily with IV Lasix. Her breathing improved exponentially after elimination of approximately 2 L of fluid over the course of her hospitalization. On admission, the patient her had a CT scan performed of her chest which showed a right upper lobe mass. Dr. Holman was consulted and looked at the previous x-rays that have been present in the system since last July. There were two of those. Dr. Holman felt that the mass was present on those x-rays as well, although it was not mentioned in the dictation. The patient has multiple risk factors for lung cancer including a long history of smoking. The patient recovered quite easily from the mild fluid overload that she had undertaken and she was no longer hypoxemic on 2 L of oxygen. It was decided to discharge the patient home and have a rapid followup and will complete her workup on an outpatient basis. The patient actually has a scheduled appointment on Friday, which was 2 days from the date of discharge. We will address her problems and decide what level of workup that we would like to pursue in regard to this. The patient was discharged home on a fixed dose of Lasix. Previously, she had been on a p.r.n. dose. We also left off the patient's lisinopril due to hypotension that was ongoing and has been a difficulty at home. The patient is to follow up in 2 days. cc: Berto Madrigal MD MTDD
== END 2019-03-13 15:24 | disposition home or self-care (01) | DRG 292 ==
LOC: ED 22:38 → 4N 03-12 07:35 → SUATTDRO 03-12 07:35
PROVIDERS: ADMIT Internal Medicine; ATTEND Internal Medicine